=== PATIENT | female | born 1985 | race Caucasian/White ===

== ENCOUNTER → 2016-10-30 | Outpatient (CLI) | payer OTHER ==
[~2016-10-30] MED LIST: ALBU17AE3 IH; AMPH20TA2 PO; ARIP5TAB13 PO; ARPZ20T PO; AZIT-21 PO; BCP; BREX3TAB PO; CEPH-38 PO; CTLP20T; CYCL10TA9 PO; DCS100C PO; DOCU-143 PO; ESCT10T; FERR-57 PO; FLUO20CA25 PO; FLUO40CA12 PO; HYDR-3812 PO; IBP600T1 PO; IBUP800T26 PO; IOHEXOL 350 MG/ML 100 ML (OMNIPAQUE 350) VIAL IV ONE; LISD30CA3 PO; METH4TAB PO; MTP25TSR PO; NAPR-243 PO; NITR-65 PO; NORG1TAB15 PO; NS 100 ML (IVPB) BAG IV ONE; OXYC-12 PO; OXYC-197 PO; OXYC1TAB12 PO; PENI500T PO; PHEN200T27 PO; PREN-93 PO; TRM50T PO; VENL75CA PO; VNL75T PO
--- OUTSIDE RECORDS SUMMARY | 2016-10-30 11:45 | XMS REPORT | Continuity of Care Document ---
Author Author [facility] Organization [facility] Address Unknown Phone Unavailable Care Team Providers Care Electronics Hardware Design Engineer Name Role Phone [facility] PCP Insurance Providers Payer Name Policy Number Subscriber Name Relationship Self Pay Pending Maple [id number] Melissa Manzo 18 Self / Same As Patient Advance Directives Directive Response Recorded Date/Time Advance Directives No 11/26/14 5:07pm Health Care Power of Band Presser No 11/26/14 5:07pm Organ Donor Yes 11/26/14 5:07pm Resuscitation Status Full Code 11/26/14 5:07pm Problems No known problems or medical conditions. Medications Medication Dose Route Sig Days/Qty Instructions Order Date Discontinued Date Status Escitalopram Oxalate 06/25/09 07/30/09 Discontinued Cyclobenzaprine HCl (Flexeril) 1 Each PO TID PRN 15 Qty FOR MUSCLE SPASMS 06/25/09 07/30/09 Discontinued Naproxen 1 Each PO TID PRN 20 Qty 06/25/09 07/30/09 Discontinued Citalopram Hydrobromide 07/30/09 05/21/11 Discontinued Fluoxetine HCl 1 Each PO DAILY 60 MG DAILY 09/22/12 01/30/14 Discontinued [Bcp] 09/22/12 01/30/14 Discontinued Albuterol 2 [place] IH EVERY 4HRS 1 Qty 09/22/12 02/06/13 Discontinued Azithromycin (Zpak) 1 Pkt PO Z-PATRICK 6 Qty 09/22/12 02/06/13 Discontinued Methylprednisolone 1 Pkt PO DIRECTED 1 Qty 09/22/12 02/06/13 Discontinued Naproxen 1 Each PO BID - TID PRN 60 Qty 02/06/13 01/30/14 Discontinued Cyclobenzaprine HCl (Flexeril) 1 Each PO TWICE A DAY 20 Qty 02/06/13 01/30/14 Discontinued Metoprolol Succinate 1 Each PO DAILY 01/30/14 07/02/14 Discontinued Aripiprazole 5 Mg PO BEDTIME 01/30/14 07/02/14 Discontinued Venlafaxine HCl 1 Each PO DAILY 01/30/14 07/02/14 Discontinued Cephalexin Monohydrate 1 Each PO FOUR TIMES DAILY 28 Qty 01/30/14 Discontinued Oxycodone Hcl/Acetaminophen 1 Each PO Q4-6H PRN 8 Qty 01/30/14 Discontinued Ibuprofen (Motrin) 800 Mg PO q8h PRN PAIN 20 Qty 01/30/14 07/02/14 Discontinued Vit/Fe Fumarate/Fa 1 Each PO 07/02/14 Active Ibuprofen 600 Mg PO EVERY 6 HOURS PRN PAIN 60 Qty 11/28/14 Active Oxycodone Hcl/Acetaminophen 1-2 Tab PO GIVE EVERY 4 HRS ON SCHEDULE PRN PAIN 50 Qty 11/28/14 Active Docusate Sodium 100 Mg PO TWICE A DAY PRN CONSTIPATION 40 Qty 11/28/14 Active Ferrous Sulfate 325 Mg PO DAILY 60 Qty 11/28/14 Active Social History Social History Problem Response Recorded Date/Time Alcohol Use Denies Use 11/26/2014 7:02pm Recreational Drug Use No 11/26/2014 7:02pm Recent Foreign Travel No 11/26/2014 7:02pm Recent Infectious Disease Exposure No 11/26/2014 7:02pm Hospitalization with Isolation Denies 11/28/2014 11:55am Smoking Status Former Smoker 11/26/2014 5:09pm Query Response Start Date Stop Date Smoking Status Former Smoker 08/26/2015 Hospital Discharge Instructions Patient Instructions Physician Instructions New, Converted or Re-Newed RX: RX on Chart Additional Follow Up: Yes Orders/Referrals Dr. Zamora follow up in 7-10 days, and again at 6 weeks Activity: Activity as Tolerated Driving Instructions: You May Drive (do not drive while taking narcotic pain meds) NO SMOKING: NO SMOKING Nothing Inside Vagina: No Douching, No Tampons Discharge Diet: No Restrictions Symptoms to Report to : Bleeding Excessive, Pain Increased, Fever Over 101 Degrees F, Vaginal Bleeding Increase, Questions/Concerns For Any Problems or Questions: Contact Your Physician Infection Signs and Symptoms: Increased Redness, Foul Odor of Wound, Increased Drainage, Skin Itchy or Has a Rash, Increased Swelling, Temperature Above 101 F Operative Area Clean and Dry: Keep Incision Clean/Dry Stitches/[place]/Dermabond: Dermabond, Care of Stitches Bathing Instructions: Shower Plan of Care Discharge Date 11/28/14 10:50am Disposition 30 STILL A PATIENT Instructions/Education Provided DISCHARGE SECTION DISCHARGE Forms Provided PDI Prescriptions See Medications Section Referrals DORIAN ZAMORA DO (Unspecified) 01/09/15 Address: [address] [place] [address] [phone] Reason(s) for Referral: Follow up with Dr. Zamora on January 09 at 1:00 PM DORIAN ZAMOAR DO (Unspecified) 12/05/14 Address: [address] [place] [id number] Reason(s) for Referral: Follow up with Dr. Zamora December 05 at 1:30 PM Functional Status No functional status results. Allergies, Adverse Reactions, Alerts Allergen Type Severity Reaction Status Last Updated Codeine Allergy Unknown Active 01/30/14 Immunizations Name Given Type Date of Influenza Vaccine 07/26/14 Historical Hepatitis A Yes Historical Hepatitis B Yes Historical Tetanus Booster (TDap) Less than 5yrs Historical Tdap 11/28/14 Administered Tdap 11/28/14 Administered Vital Signs Acute Vital Signs Vital Response Date/Time Temperature (Fahrenheit) 96.3 degrees F (97.6 - 99.5) Temperature (Calculated Celsius) 35.94825 degrees C (36.4 - 37.5) Temperature Source Tympanic Pulse Rate (adult) 81 bpm (60 - 90) Respiratory Rate 16 bpm (12 - 24) O2 Sat by Pulse Oximetry 97 % (88 - 100) Blood Pressure 91/50 mm Hg Pain Pain Intensity 3 Height (Feet) 5 feet Height (Inches) 3.00 inches Height (Calculated Centimeters) 160.717237 cm Weight (Pounds) 226 pounds Weight (Ounces) 8.0 oz Weight (Calculated Grams) 663196.673 gm Weight (Calculated Kilograms) 102.088892 kilograms Calculated BMI 40.03 Results Laboratory Results Test Name Result Units Flags Reference Collection Date/Time Result Date/ Time Comments White Blood Count 12.8 10^3/uL H 4.3-11.0 11/27/2014 6:11/27/2014 6: 25am Red Blood Count 3.51 10^6/uL L 4.35-5.85 11/27/2014 6:11/27/2014 6: 25am Hemoglobin 10.5 G/DL L 11.5-16.0 11/27/2014 6:11/27/2014 6:25am Hematocrit 30 % L 35-52 11/27/2014 6:11/27/2014 6:25am Mean Corpuscular Volume 87 FL 80-99 11/27/2014 6:11/27/2014 6: 25am Mean Corpuscular Hemoglobin 30 PG 25-34 11/27/2014 6:11/27/2014 6: 25am Mean Corpuscular Hemoglobin Concent 35 G/DL 32-36 11/27/2014 6:05/2015 6:25am Red Cell Distribution Width 13.0 % 10.0-14.5 11/27/2014 6:2014 6:25am Platelet Count 106 10^3/uL L 130-400 11/27/2014 6:11/27/2014 6:25am Mean Platelet Volume 13.0 FL H 7.4-10.4 11/27/2014 6:11/27/2014 6: 25am Neutrophils (%) (Auto) 75 % 42-75 11/27/2014 6:11/27/2014 6:25am Lymphocytes (%) (Auto) 16 % 12-44 11/27/2014 6:11/27/2014 6:25am Monocytes (%) (Auto) 7 % 0-12 11/27/2014 6:11/27/2014 6:25am Eosinophils (%) (Auto) 2 % 0-10 11/27/2014 6:10am 11/27/2014 6:25am Basophils (%) (Auto) 0 % 0-10 11/27/2014 6:10am 11/27/2014 6:25am Neutrophils # (Auto) 9.6 X 10^3 H 1.8-7.8 11/27/2014 6:10am 11/27/2014 6: 25am Lymphocytes # (Auto) 2.1 X 10^3 1.0-4.0 11/27/2014 6:10am 11/27/2014 6: 25am Monocytes # (Auto) 0.9 X 10^3 0.0-1.0 11/27/2014 6:10am 11/27/2014 6: 25am Eosinophils # (Auto) 0.2 10^3/uL 0.0-0.3 11/27/2014 6:10am 11/27/2014 6 :25am Basophils # (Auto) 0.0 10^3/uL 0.0-0.1 11/27/2014 6:10am 11/27/2014 6: 25am Glucometer 103 MG/DL 70-110 11/26/2014 7:02pm 11/26/2014 7:10pm Procedures Procedure Status Date Provider(s) section completed 11/26/14 DORIAN ZAMORA DO Encounters Encounter Location Date/Time Discharged Inpatient Via [facility] 11/26/14 6:36pm
--- NOTE | 2016-10-30 12:46 | Diagnostic Imaging Report ---
PROCEDURE: CT abdomen and pelvis with contrast. TECHNIQUE: Multiple contiguous axial images were obtained through the abdomen and pelvis after administration of intravenous contrast. INDICATION: Left lower quadrant pain. 100 mL of Omnipaque 350 is administered intravenously. COMPARISON: 01/02/2016. FINDINGS: The lung bases appear clear. The liver appears fairly homogeneous. The gallbladder has a normal variation appearance being surrounded almost completely by liver parenchyma. There is no calcified stone. The spleen is not enlarged. The pancreas and the adrenal glands appear unremarkable. The kidneys demonstrate symmetric enhancement and contrast excretion. There is no hydronephrosis. The abdominal aorta is normal in caliber. No para-aortic significantly enlarged lymph node is seen. Tiny fat-containing umbilical hernia defect is seen which appears to be covered by a mesh. Correlate with surgical history. The uterus and the adnexa demonstrate no definite abnormality. There is no significant free fluid or fluid collection in the abdomen or pelvis seen. No bowel obstruction. Small amount of fecal material is seen in the colon. The appendix is normal. The osseous structures appear grossly unremarkable. IMPRESSION: No significant abnormality. Dictated by: Dictated on workstation # [id number]
== END ==
LOC: RAD 11:42
PROVIDERS: ATTEND Nurse Practitioner Community Health
DX: R10.32 Left lower quadrant pain (principal)
CPT/HCPCS: 74177

== ENCOUNTER 2016-12-19 13:30 | Outpatient (RCR) | payer SELFPAY ==
--- OUTSIDE RECORDS SUMMARY | 2016-11-28 14:45 | XMS REPORT | Continuity of Care Document ---
Author Author [facility] Organization [facility] Address Unknown Phone Unavailable Care Team Providers Care Ecommerce Marketing Manager Name Role Phone [facility] OF PCP Insurance Providers Payer Name Policy Number Subscriber Name Relationship Self Pay Pending Maple [id number] Melissa Manzo 18 Self / Same As Patient Advance Directives Directive Response Recorded Date/Time Advance Directives No 11/26/14 5:07pm Health Care Power of Mechanical Developer [place] No 11/26/14 5:07pm Organ Donor Yes 11/26/14 [...] Discontinued [Bcp] 09/22/12 01/30/14 Discontinued Albuterol 2 [place] IH EVERY 4HRS 1 Qty 09/22/12 02/06/13 [...] Area Clean and Dry: Keep Incision Clean/Dry Stitches/[place]/Dermabond: Dermabond, Care of Stitches Bathing Instructions: Shower Plan of Care Discharge Date 11/28/14 10:50am Disposition 30 STILL A PATIENT Instructions/Education Provided DISCHARGE SECTION DISCHARGE Forms Provided PDI Prescriptions See Medications Section Referrals DORIAN ZAMORA DO (Unspecified) 01/09/15 Address: [address] [place] [address] [phone] Reason(s) for Referral: Follow up with Dr. Zamora on January 09 at 1:00 PM DORIAN ZAMORA DO (Unspecified) 12/05/14 Address: [address] [place] [id number] Reason(s) for Referral: Follow up with [...] F (97.6 - 99.5) Temperature (Calculated Celsius) 35.94892 degrees C (36.4 - 37.5) Temperature Source Tympanic Pulse Rate (adult) 81 bpm (60 - 90) Respiratory Rate 16 bpm (12 - 24) O2 Sat by Pulse Oximetry 97 % (88 - 100) Blood Pressure 91/50 mm Hg Pain Pain Intensity 3 Height (Feet) 5 feet Height (Inches) 3.00 inches Height (Calculated Centimeters) 160.013948 cm Weight (Pounds) 226 pounds Weight (Ounces) 8.0 oz Weight (Calculated Grams) 246605.673 gm Weight (Calculated Kilograms) 102.460970 kilograms Calculated BMI 40.03 Results Laboratory Results [...] Encounters Encounter Location Date/Time Discharged Inpatient [facility] 11/26/14 6:36pm
[~2016-12-19 13:30] MED LIST changes: -IOHEXOL 350 MG/ML 100 ML (OMNIPAQUE 350) VIAL IV ONE; -NS 100 ML (IVPB) BAG IV ONE
== END 2017-01-14 14:31 | disposition home or self-care (01) ==
PROVIDERS: ATTEND Nurse Practitioner
DX: M54.16 Radiculopathy, lumbar region (principal)

== ENCOUNTER → 2017-06-09 | Outpatient (CLI) | payer MEDICAID ==
--- NOTE | 2017-06-09 11:28 | Diagnostic Imaging Report ---
INDICATION: survey. COMPARISON: None. TECHNIQUE: Multiple real-time grayscale images were obtained over the gravid uterus. FINDINGS: Single live intrauterine is identified with a heart rate of 146 beats per minute. The fetus is in cephalic presentation. Placenta is anterior and has a normal appearance. Amniotic fluid volume is normal. The fetus is cephalic. The visualized cervix is closed and measures approximately 4 cm. Visualized anatomy is normal. The four-chamber heart and spine are not well demonstrated due to patient body habitus and positioning. Biometrical measurements are as follows: Biparietal 4.6 cm, age 19 weeks 6 days. Head circumference 17.3 cm, age 20 weeks 0 days. Abdominal circumference 15.1 cm, age 20 weeks 3 days. Femur length 3.4 cm, age 20 weeks 5 days. Sonographic estimate age: 20 weeks 2 days. Sonographic estimated date of delivery: 10/25/17. Estimated Weight: 352 gm (+/- 51 gm). LMP percentile: 52%. heart rate: 146 beats per minute. number: 1 of 1. IMPRESSION: 1. Single live intrauterine at 20 weeks 2 days with a due date by ultrasound of 10/25/2017. 2. Cephalic presentation. 3. Symmetric appropriate growth. 4. Poorly visualized four chamber heart and spine due to positioning and patient body habitus. Consider followup. Dictated by: Dictated on workstation # [id number]
== END ==
LOC: RAD 09:46
PROVIDERS: ATTEND Obstetrics & Gynecology
DX: Z36 Encounter for antenatal screening of mother (principal); Z3A.20 20 weeks gestation of pregnancy
CPT/HCPCS: 76805

== ENCOUNTER 2017-07-02 18:52 | Outpatient (CLI) | payer MEDICAID ==
[~2017-07-02] VITALS: Ht 167.6 cm; Wt 96.6 kg
[2017-07-02 19:15] VITALS: BP 115/56
[2017-07-02] MEDS ORDERED: NITROFURANTOIN 100 MG (MACROBID) CAPSULE PO ONE ×2 (19:29→20:00)
[2017-07-02] MEDS ORDERED: PREN-53 PO (19:32)
--- NOTE | 2017-07-03 09:46 | Physician Query-Final Dx ---
CRISTINO VICTOR 07/03/17 0946: Clinic Account Progress/Dx Physician Query: Please give diagnosis Date of Service Jul 02, 2017 at 18:52 NATHANIEL BEAL MD 07/04/17 0658: Clinic Account Progress/Dx DIAGNOSIS: Diagnosis false labor CRISTINO VICTOR Jul 03, 2017 09:46 NATHANIEL BEAL MD Jul 04, 2017 06:58
== END 2017-07-02 19:40 | disposition home or self-care (01) ==
LOC: LDRP 18:52 → WSo 18:52
PROVIDERS: ATTEND Obstetrics & Gynecology
DX: O47.02 False labor before 37 completed weeks of gestation, second trimester (principal); Z3A.23 23 weeks gestation of pregnancy
CPT/HCPCS: 99213

== ENCOUNTER → 2017-07-09 | Outpatient (CLI) | payer MEDICAID ==
[~2017-07-09] MED LIST changes: +PREN-53 PO
--- NOTE | 2017-07-09 16:26 | Diagnostic Imaging Report ---
INDICATION: Follow-up spine and four-chamber view. TECHNIQUE: Multiple real-time grayscale images were obtained over the gravid uterus. COMPARISON: 06/09/2017. FINDINGS: The heart rate is 152 beats per minutes. The placenta is anterior. There is no placenta previa. The cervix is 4.8 cm in length and is closed. The spine and four-chamber view are visualized and appear unremarkable. IMPRESSION: Completed survey. Dictated by: Dictated on workstation # [id number]
== END ==
LOC: RAD 12:01
PROVIDERS: ATTEND Obstetrics & Gynecology
DX: Z36 Encounter for antenatal screening of mother; Z3A.00 Weeks of gestation of pregnancy not specified
CPT/HCPCS: 76805

== ENCOUNTER 2017-09-24 15:08 | Outpatient (CLI) | payer MEDICAID ==
[~2017-09-24] VITALS: Ht 160 cm; Wt 100.3 kg
[2017-09-24 15:42] VITALS: BP 97/52
[2017-09-24 16:05] VITALS: BP 108/52
[2017-09-24] MEDS ORDERED: GLYB5TAB6 PO (16:20)
[2017-09-24 17:00] VITALS: BP 100/56
[2017-09-24] MEDS ORDERED: LACTATED RINGERS 1,000 ML IV ONE (17:45)
[2017-09-24 19:32] VITALS: BP 100/56
--- NOTE | 2017-09-26 14:34 | Physician Query-Final Dx ---
SEVERIANO RICO 09/26/17 1434: Clinic Account Progress/Dx Physician Query: Please give diagnosis Date of Service Sep 24, 2017 at 15:08 NATHANIEL BEAL MD 09/26/17 1728: Clinic Account Progress/Dx DIAGNOSIS: Diagnosis false labor SEVERIANO RICO Sep 26, 2017 14:34 NATHANIEL BEAL MD Sep 26, 2017 17:28
== END 2017-09-24 19:32 | disposition home or self-care (01) ==
LOC: WSo 15:08 → LDRP 15:08 → WSo 19:32
PROVIDERS: ATTEND Obstetrics & Gynecology
DX: O47.03 False labor before 37 completed weeks of gestation, third trimester (principal); Z3A.35 35 weeks gestation of pregnancy
CPT/HCPCS: 82962; 96360; 96361; 99214

== ENCOUNTER → 2017-09-25 | Outpatient (CLI) | payer MEDICAID ==
[~2017-09-25] MED LIST changes: +GLYB5TAB6 PO
--- NOTE | 2017-09-25 17:02 | Diagnostic Imaging Report ---
OB ultrasound biophysical profile. INDICATION: Gestational diabetes. FINDINGS: heart rate is 123 beats per minute. The position is cephalic. DANICA is 13 cm. Biophysical profile parameters are all met for a total score of 8 out of 8. IMPRESSION: Biophysical profile score is 8 out of 8. Dictated by: Dictated on workstation # [id number]
== END ==
LOC: RAD 14:58
PROVIDERS: ATTEND Obstetrics & Gynecology
DX: O24.415 Gestational diabetes mellitus in pregnancy, controlled by oral hypoglycemic drugs (principal)
CPT/HCPCS: 76819

== ENCOUNTER 2017-10-09 01:05 | Outpatient (CLI) | payer MEDICAID ==
[~2017-10-09] VITALS: Ht 160 cm; Wt 100.3 kg
[2017-10-10] MEDS ORDERED: OXYC-471 PO (14:00)
[2017-10-10] MEDS ORDERED: IBUP-1773 PO (14:00)
[2017-10-10] MEDS ORDERED: DOCU100C37 PO (14:00)
== END 2017-10-09 13:07 ==
LOC: PREOP 01:05
PROVIDERS: ATTEND Obstetrics & Gynecology
DX: Z01.818 Encounter for other preprocedural examination (principal); O34.219 Maternal care for unspecified type scar from previous cesarean delivery

== ENCOUNTER 2017-10-09 19:53 | Inpatient (IN) | payer MEDICAID ==
[~2017-10-09] VITALS: Ht 160 cm; Wt 102.1 kg
[2017-10-09 20:11] VITALS: BP 113/62
[2017-10-09 20:21] LABS: BILIRUBIN,URINE NEGATIVE (NEGATIVE); KETONES,URINE NEGATIVE (NEGATIVE); LEUKOCYTE ESTERASE ,URINE 1+ (NEGATIVE); NITRITE,URINE NEGATIVE (NEGATIVE); PH,URINE 7 (5-9); PROTEIN,URINE NEGATIVE (NEGATIVE); UROBILINOGEN,URINE NORMAL (NORMAL)
[2017-10-09 20:47] LABS: WBC,URINE 0-2 /HPF
[2017-10-09] MEDS ORDERED: TERBUTALINE INJ 1 MG/ML (BRETHINE) AMP SC ONE ×2 (21:00→22:00)
[2017-10-09] MEDS: LACTATED RINGERS 1,000 ML IV SCH (21:05)
[2017-10-09 22:00] LABS: BASOPHILS % (AUTO) 0 % (0-10); EOSINOPHILS # (AUTO) 0.1 10^3/uL (0.0-0.3); EOSINOPHILS % (AUTO) 1 % (0-10); LYMPHOCYTES # (AUTO) 3.7 X 10^3 (1.0-4.0); LYMPHOCYTES % (AUTO) 20 % (12-44); MEAN CORPUSCULAR HEMOGLOBIN 31 PG (25-34); MEAN CORPUSCULAR HGB CONC 35 G/DL (32-36); MEAN CORPUSCULAR VOLUME 88 FL (80-99); MEAN PLATELET VOLUME 13.3 FL (7.4-10.4); MONOCYTES # (AUTO) 0.9 X 10^3 (0.0-1.0); MONOCYTES % (AUTO) 5 % (0-12); NEUTROPHILS # (AUTO) 14.1 X 10^3 (1.8-7.8); NEUTROPHILS % (AUTO) 75 % (42-75); PLATELET COUNT 154 10^3/uL (130-400); RED BLOOD COUNT 3.87 10^6/uL (4.35-5.85); RED CELL DISTRIBUTION WIDTH 13.3 % (10.0-14.5); WHITE BLOOD COUNT 18.9 10^3/uL (4.3-11.0)
[2017-10-09] MEDS ORDERED: morphine INJ 10 MG/ML 1ML (SYR OR VIAL) IVP ONE (22:00)
[2017-10-09 22:46] LABS: BAND NEUTROPHILS 0 %; BASOPHILS % (MANUAL) 1 %; EOSINOPHILS % (MANUAL) 1 %; LYMPHOCYTES % (MANUAL) 20 %; NEUTROPHILS % (MANUAL) 76 %
[2017-10-09 23:16] VITALS: BP 103/52
[2017-10-10] VITALS (7 sets, daily range): BP systolic 95–119; BP diastolic 50–59
[2017-10-10] MEDS ORDERED: LACTATED RINGERS 1,000 ML IV PRN (04:56)
[2017-10-10] MEDS ORDERED: CATHETER FLUSH 10 ML SYR IV PRN (05:00)
[2017-10-10] MEDS ORDERED: ceFAZolin 2 GM/50 ML NS 50 ML IV ONE (05:00)
[2017-10-10] MEDS ORDERED: CITRIC ACID/SOB CIT (BICITRA) 30 ML UDC PO ONE (05:00)
[2017-10-10] MEDS ORDERED: METOCLOPRAMIDE INJ 10 MG/2 ML (REGLAN) IV ONE (05:00)
[2017-10-10] MEDS ORDERED: FAMOTIDINE 20MG/2ML IV (PEPCID) IV ONE (05:00)
[2017-10-10] MEDS: LACTATED RINGERS 1,000 ML IV SCH ×3 (05:08→23:19)
--- NOTE | 2017-10-10 06:51 | History & Physical-OB ---
OB - Chief Complaint & HPI Date/Time Date of Admission: Date of Admission: Oct 09, 2017 at 9:52 pm Time Seen by Provider: 06:45 Chief Complaint/History OB-Reason for Admission/Chief: Onset of Labor Hx : 5 Hx Para: 4 Expected Date of Delivery: Oct 25, 2017 Gestational Age in Weeks: 37 Indication for : desires repeat Other reason for admission: This patient presented to L and D with regular contractions, with her history of GDMA2 in this she was scheduled for RLTCS next friday. Admission Nurse Assessment Rev: Yes History of Labs A neg Antibody neg RI RPR NR HBsAg NR HIV NR GC neg GBS neg Allergies and Home Medications Allergies Coded Allergies: hydrocodone (Verified Allergy, Intermediate, nausea, 10/10/17) codeine (Unverified Adverse Reaction, Intermediate, GI UPSET, 10/09/17) Home Medications Glyburide 5 Mg Tablet, 5 MG PO BID, (Reported) [id number]/Iron Fumarate/FA/Dss 1 Each Tablet, 1 EACH PO DAILY, (Reported) OB - History Hx of Present Care: Yes Ultrasounds: Normal mid trimester US Obstetrical Complications: Gestational Diabetes Medical Complications: None Obstetrical History Hx : 5 Hx Para: 4 Hx Termination: Yes (spontaneous ) Hx Multiple Gestation: No Hx Stillbirth: No Hx Complication: No Hx Induced Hypertens: Yes Hx Maternal Gestational Diabet: Yes Delivery History Hx Dystocia: No Hx Large For Gestational Age I: No Hx Small for Gestational Age I: No Hx Section: Yes Hx Vaginal Delivery Post C-Sec: No Hx Blood Disorders: No Adverse Rxn to Tranfusion: No (N/A) Patient Past Medical History Hx of Bipolar and Depression, + UDS in early for THC Social History/Family History HIV/AIDS: No Recent Infectious Disease Expo: No Sexually Transmitted Disease: No Alcohol Use: Denies Use Recreational Drug Use: No Immunizations Hepatitis A: Yes Hepatitis B: Yes Tetanus Booster (TDap): Less than 5yrs Date of Influenza Vaccine: Jul 28, 2017 OB - Admission Exam Physical Exam Vitals: Vital Signs 10/10/17 10/10/17 05:11 05:14 Temp 96.7 Pulse 88 Resp 18 B/P (MAP) 98/59 (72) O2 Delivery Room Air HEENT: NCAT Heart: Rhythm Normal Lungs: Clear Abdomen: Gravid Extremities: Normal Reflexes: Normal Cervical Dilatation: 2cm Effacement: 75% Station: -1 Membranes: Intact Heart Rate: 130's Accelerations: Accelerations Present Decelerations: No Decelerations Short Term Variability: Present Long-Term Variability: Average (6-25) Contractions on Admission: 6-10 Minutes Apart Intensity: Moderate Labs Laboratory Tests Test 10/09/17 20:10 10/09/17 20:44 10/09/17 21:15 10/10/17 05:05 Range/Units Urine Color YELLOW Urine Clarity CLEAR Urine pH 7 5-9 Urine Specific [place] 1.010 L 1.016-1.022 Urine Protein NEGATIVE NEGATIVE Urine Glucose (UA) NEGATIVE NEGATIVE Urine Ketones NEGATIVE NEGATIVE Urine Nitrite NEGATIVE NEGATIVE Urine Bilirubin NEGATIVE NEGATIVE Urine Urobilinogen NORMAL NORMAL MG/DL Urine Leukocyte Esterase 1+ H NEGATIVE Urine RBC (Auto) NEGATIVE NEGATIVE Urine RBC NONE /HPF Urine WBC 0-2 /HPF Urine Squamous Epithelial Cells 10-25 H /HPF Urine Crystals NONE /LPF Urine Bacteria TRACE /HPF Urine Casts NONE /LPF Urine Mucus NEGATIVE /LPF Urine Culture Indicated NO Glucometer 95 135 H 70-110 MG/DL White Blood Count 18.9 H 4.3-11.0 10^3/uL Red Blood Count 3.87 L 4.35-5.85 10^6/uL Hemoglobin 11.8 11.5-16.0 G/DL Hematocrit 34 L 35-52 % Mean Corpuscular Volume 88 80-99 FL Mean Corpuscular Hemoglobin 31 25-34 PG Mean Corpuscular Hemoglobin Concent 35 32-36 G/DL Red Cell Distribution Width 13.3 10.0-14.5 % Platelet Count 154 130-400 10^3/uL Mean Platelet Volume 13.3 H 7.4-10.4 FL Neutrophils (%) (Auto) 75 42-75 % Lymphocytes (%) (Auto) 20 12-44 % Monocytes (%) (Auto) 5 0-12 % Eosinophils (%) (Auto) 1 0-10 % Basophils (%) (Auto) 0 0-10 % Neutrophils # (Auto) 14.1 H 1.8-7.8 X 10^3 Lymphocytes # (Auto) 3.7 1.0-4.0 X 10^3 Monocytes # (Auto) 0.9 0.0-1.0 X 10^3 Eosinophils # (Auto) 0.1 0.0-0.3 10^3/uL Basophils # (Auto) 0.0 0.0-0.1 10^3/uL Neutrophils % (Manual) 76 % Lymphocytes % (Manual) 20 % Monocytes % (Manual) 2 % Eosinophils % (Manual) 1 % Basophils % (Manual) 1 % Band Neutrophils 0 % Blood Morphology Comment NORMAL OB - Assessment/Plan/Diagnosis Assessment Assessment: section Plan Plan: Section Discharge Diagnosis Diagnosis: 32 yo @ 37.6 GDMA2 Previous x 3 Early labor DORIAN SIERRA DO Oct 10, 2017 6:51 am
[2017-10-10] MEDS ORDERED: ONDANSETRON 4 MG/2 ML (SDV) Z0FRAN IVP PRN ×2 (07:00→08:30)
[2017-10-10] MEDS ORDERED: TETANUS,DIPTH,PERTUSS P/F (BOOSTRIX) 0.5 ML VIAL IM SCH (07:00)
[2017-10-10] MEDS ORDERED: MEASLES,MUMPS,RUBELLA 1 EA INJ SC SCH (07:00)
[2017-10-10] MEDS ORDERED: OXYTOCIN/NORMAL SALINE 500 ML IV SCH (07:00)
[2017-10-10] MEDS ORDERED: fentaNYL INJECTION 100 MCG/2 ML AMP ONE (07:05)
[2017-10-10] MEDS ORDERED: METOCLOPRAMIDE INJ 10 MG/2 ML (REGLAN) IV PRN (08:30)
[2017-10-10] MEDS ORDERED: NALOXONE 0.4 MG/ML 1 ML (NARCAN) VIAL IV PRN ×2 (08:30)
[2017-10-10] MEDS ORDERED: diphenhydrAMINE 50 MG/ML INJ (BENADRYL) IV PRN (08:30)
[2017-10-10] MEDS ORDERED: MEPERIDINE (DEMEROL) INJ 50 MG/ML IVP PRN (08:30)
[2017-10-10] MEDS ORDERED: ONDANSETRON 4 MG/2 ML (SDV) Z0FRAN IV PRN (08:30)
[2017-10-10] MEDS ORDERED: morphine INJ 10 MG/ML 1ML (SYR OR VIAL) IVP PRN (08:30)
[2017-10-10] MEDS: oxyCODONE/APAP 5/325MG (PERCOCET 5) TABLET PO PRN ×3 (12:20→21:45)
--- NOTE | 2017-10-10 13:59 | Discharge Inst-Women's Service ---
Discharge Inst-Women's Serv Depart Medication/Instructions New, Converted or Re-Newed RX: RX on Chart Consults/Follow Up Additional Follow Up: Yes Orders/Referrals Dr. Zamora in 7-10 days and in 6 weeks Activity Activity: Activity as Tolerated Driving Instructions: No Driving for 1 Week NO SMOKING: NO SMOKING Nothing Inside Vagina: No Douching, No [place], No Tampons Diet Discharge Diet: No Restrictions Symptoms to Report to : Bleeding Excessive, Pain Increased, Fever Over 101 Degrees F, Vaginal Bleeding Increase, Questions/Concerns For Any Problems or Questions: Contact Your Physician Skin/Wound Care Infection Signs and Symptoms: Increased Redness, Foul Odor of Wound, Increased Drainage, Skin Itchy or Has a Rash, Increased Swelling, Temperature Above 101 F Operative Area Clean and Dry: Keep Incision Clean/Dry Stitches/[place]/Dermabond: Dermabond, Care of Stitches Bathing Instructions: DORIAN Jordan DO Oct 10, 2017 1:59 pm
[2017-10-10] MEDS ORDERED: CATHETER FLUSH 10 ML SYR IV SCH (14:00)
[2017-10-10] MEDS ORDERED: IBUP-1773 PO (14:00)
[2017-10-10] MEDS ORDERED: DOCU100C37 PO (14:00)
[2017-10-10] MEDS ORDERED: OXYC-471 PO (14:00)
--- NOTE | 2017-10-10 16:45 | OPERATIVE REPORT ---
DATE OF SERVICE: PREOPERATIVE DIAGNOSES: 1. A 32-year-old female with repeat section x3. 2. Active labor. 3. Gestational diabetes. POSTOPERATIVE DIAGNOSES: 1. A 32-year-old female with repeat section x3. 2. Active labor. 3. Gestational diabetes. PROCEDURE: Repeat low transverse section. SURGEON: Dr. Frankie Sierra. ANESTHESIA: Spinal. ESTIMATED BLOOD LOSS: 500 mL. URINE OUTPUT: 500 mL clear at the end of the procedure. FLUIDS: 1700 mL lactated Ringer's solution. FINDINGS: A live female infant, weight pending, Apgars of 7 and 8. Grossly normal-appearing uterus, bilateral fallopian tubes and ovaries. Dense adhesions and scar tissue of the rectus fascia and Sherley's fascia. SPECIMEN SENT: None. INDICATIONS FOR PROCEDURE: This 32-year-old female is a patient who had care in my office and was diagnosed with gestational diabetes, which was controlled with glyburide. She presented last evening with mild contractions that seemed to worsen throughout the evening. She made mild cervical change from 1 to 2 to 2 cm. Due to ongoing contractions and diagnosis of active labor as well as repeat , I discussed with the patient proceeding with . Risks of the procedure had already been reviewed with the patient and she was scheduled for next week. Risk of bleeding, infection, damage to any surrounding structures including but not limited to bowel, bladder, ureter, kidneys, risk of damaging , postoperative blood clot or thromboembolic events were discussed, risk from anesthesia and even . After everything was discussed with the patient, consent was obtained in the preoperative area and the patient was taken to the operating room. OPERATIVE REPORT IN DETAIL: Once in the operating room, spinal anesthesia was found to be adequate. She was placed in the supine position with a leftward tilt, prepped and draped in normal sterile fashion. A Pfannenstiel skin incision made through the previously existing scar using the knife and carried down to underlying fascia using Bovie cautery. Fascial incision extended laterally using Bovie cautery. The superior aspect of the fascial incision was then grasped with Zenia clamps, tented up and dissected off the underlying rectus muscles. The inferior aspect of the fascial incision was then grasped with Zenia clamps, tented upward and dissected off the underlying rectus muscles. Rectus muscle was then dissected down the midline using Cooper scissors which exposed the peritoneum which entered bluntly and extended with blunt traction. An Ryder ring retractor was placed within the peritoneal incision, which offers excellent lateral sidewall retraction. I then proceed with making a low transverse incision through the vesicouterine peritoneum using knife and bluntly dissected off the lower uterine segment. I then proceed with my myotomy using a knife until membranes were visualized at which point, I extend the uterine incision laterally and superiorly using bandage scissors. Amniotomy was performed using Allis clamp, clear fluid was noted. The was found in vertex presentation. With gentle fundal pressure and elevation of the head, the 's head was delivered through the incision where the nares and oropharynx are bulb suctioned. The anterior and posterior shoulders were delivered. The infant was then brought out to the operative field where cord was doubly clamped and cut and infant handed off to waiting nurses in attendance. Cord blood was collected. Three-vessel cord with intact placenta was delivered spontaneously, thereafter. IV Pitocin was initiated to facilitate uterine contraction. Uterine fundus became firmer with bimanual massage. Uterus then exteriorized and cleared of endometrial clots and debris. The uterine incision was then closed using 0 Vicryl in a running locked fashion. Second layer of imbricating 0 Monocryl was placed. Excellent hemostasis was noted after doing this. The uterus was then placed back within the pelvis and the pelvis was copiously irrigated using normal saline. There was no active bleeding noted from any my dissection planes. I then proceeded with closing the peritoneum with 3-0 Vicryl suture in a running fashion after the Ryder ring retractor was removed. The fascia was reapproximated using 0 Vicryl suture in running fashion. Subcutaneous tissue reapproximated using 3-0 plain interrupted subcutaneous tissue and skin reapproximated using 4-0 Monocryl in a running subcuticular. Dermabond was applied to the incision and sterile dressing with adhesive white tape. The patient tolerated the procedure well and was taken to recovery area in stable condition. Lap and sponge count correct at the end of the procedure, instrument counts correct as well. Two grams of Ancef given preoperatively for infection prophylaxis. Job ID: [id number] DocumentID: [id number] Dictated Date: 10/10/2017 08:16:19 Tong Hooker Date: 10/10/2017 13:10:49 Dictated By: FRANKIE SIERRA DO
[2017-10-10] MEDS: KETOROLAC 30 MG/ML VIAL IVP SCH ×2 (17:01→23:15)
[2017-10-10] MEDS: DOCUSATE SODIUM 100 MG (COLACE) CAP PO SCH (21:45)
[2017-10-11 00:50] VITALS: BP 98/57
[2017-10-11] MEDS: KETOROLAC 30 MG/ML VIAL IVP SCH ×2 (06:01→18:28)
[2017-10-11] MEDS ORDERED: KETOROLAC 30 MG/ML VIAL ONE (06:01)
[2017-10-11 07:32] LABS: BASOPHILS % (AUTO) 0 % (0-10); EOSINOPHILS # (AUTO) 0.1 10^3/uL (0.0-0.3); EOSINOPHILS % (AUTO) 1 % (0-10); LYMPHOCYTES # (AUTO) 2.5 X 10^3 (1.0-4.0); LYMPHOCYTES % (AUTO) 19 % (12-44); MEAN CORPUSCULAR HEMOGLOBIN 31 PG (25-34); MEAN CORPUSCULAR HGB CONC 34 G/DL (32-36); MEAN CORPUSCULAR VOLUME 89 FL (80-99); MEAN PLATELET VOLUME 12.9 FL (7.4-10.4); MONOCYTES # (AUTO) 0.7 X 10^3 (0.0-1.0); MONOCYTES % (AUTO) 5 % (0-12); NEUTROPHILS # (AUTO) 10.1 X 10^3 (1.8-7.8); NEUTROPHILS % (AUTO) 75 % (42-75); PLATELET COUNT 142 10^3/uL (130-400); RED BLOOD COUNT 3.48 10^6/uL (4.35-5.85); RED CELL DISTRIBUTION WIDTH 13.5 % (10.0-14.5); WHITE BLOOD COUNT 13.4 10^3/uL (4.3-11.0)
[2017-10-11 08:56] VITALS: BP 108/58
[2017-10-11] MEDS: DOCUSATE SODIUM 100 MG (COLACE) CAP PO SCH ×2 (09:00→11:26)
--- NOTE | 2017-10-11 09:49 | Progress Note-Standard ---
Standard Progress Note Progress Notes/Assess & Plan Date Seen by Provider: Oct 11, 2017 Time Seen by Provider: 09:30 Progress/Assessment & Plan patient is doing well postop day one from repeat low transverse section. She is ambulating and voiding freely, she is tolerating a regular diet , she admits to njjn-[id number] lochia. Vital Sign - Last 24 Hours 10/10/17 10/10/17 10/10/17 10/10/17 10:00 12:00 16:45 21:35 Temp 98.8 98.3 99.0 97.6 Pulse 76 85 75 75 Resp 18 18 18 18 B/P (MAP) 95/50 (65) 103/59 (74) 96/50 (65) 98/51 (67) Pulse Ox 98 99 99 100 O2 Delivery Room Air Room Air Room Air Room Air 10/11/17 10/11/17 00:50 08:56 Temp 96.9 98.8 Pulse 83 77 Resp 18 18 B/P (MAP) 98/57 (71) 108/58 (75) Pulse Ox 99 100 O2 Delivery Room Air Intake and Output 10/10/17 10/10/17 10/11/17 15:00 23:00 07:00 Intake Total 550 ml 1860 ml 1250 ml Output Total 530 ml 1000 ml Balance 20 ml 860 ml 1250 ml Incision: Clean, dry, intact Laboratory Tests Test 10/11/17 07:18 Range/Units White Blood Count 13.4 H 4.3-11.0 10^3/uL Red Blood Count 3.48 L 4.35-5.85 10^6/uL Hemoglobin 10.6 L 11.5-16.0 G/DL Hematocrit 31 L 35-52 % Mean Corpuscular Volume 89 80-99 FL Mean Corpuscular Hemoglobin 31 25-34 PG Mean Corpuscular Hemoglobin Concent 34 32-36 G/DL Red Cell Distribution Width 13.5 10.0-14.5 % Platelet Count 142 130-400 10^3/uL Mean Platelet Volume 12.9 H 7.4-10.4 FL Neutrophils (%) (Auto) 75 42-75 % Lymphocytes (%) (Auto) 19 12-44 % Monocytes (%) (Auto) 5 0-12 % Eosinophils (%) (Auto) 1 0-10 % Basophils (%) (Auto) 0 0-10 % Neutrophils # (Auto) 10.1 H 1.8-7.8 X 10^3 Lymphocytes # (Auto) 2.5 1.0-4.0 X 10^3 Monocytes # (Auto) 0.7 0.0-1.0 X 10^3 Eosinophils # (Auto) 0.1 0.0-0.3 10^3/uL Basophils # (Auto) 0.0 0.0-0.1 10^3/uL diagnosis: Postop day 1 repeat low transverse section GDM A2 acute blood loss anemia Plan: Replace iron with oral supplementation Continue routine postoperative care Plan for dismissal tomorrow pending patient's improvement DORIAN SIERRA DO Oct 11, 2017 9:49 am
[2017-10-11] MEDS: oxyCODONE/APAP 5/325MG (PERCOCET 5) TABLET PO PRN ×2 (11:26→16:53)
[2017-10-11 12:47] VITALS: BP 108/54
[2017-10-11] MEDS: IBUPROFEN 600 MG (MOTRIN) TAB PO SCH ×2 (12:48→18:00)
--- NOTE | 2017-10-11 15:04 | Anesthesia-Regional Post-Op ---
Regional Patient Condition Mental Status: Alert, Oriented x3 Circulation: Same as Pre-Op Headache: Absent Sensation: Full Recovery Motor Block: Absent Post Op Complications Complications None Follow Up Care/Instructions Patient Instructions None needed. Anesthesia/Patient Condition Patient is doing well, no complaints, stable vital signs, no apparent adverse anesthesia problems. No complications reported per nursing. JOY MOTT CRNA Oct 11, 2017 15:04
[2017-10-11 17:56] VITALS: BP 102/51
[2017-10-12] VITALS: BP 97/48
[2017-10-12] MEDS: IBUPROFEN 600 MG (MOTRIN) TAB PO SCH ×3 (00:09→16:45)
[2017-10-12] MEDS: DOCUSATE SODIUM 100 MG (COLACE) CAP PO SCH ×2 (00:09→10:00)
--- NOTE | 2017-10-12 07:54 | Progress Note-Standard ---
Standard Progress Note Progress Notes/Assess & Plan Date Seen by Provider: Oct 12, 2017 Time Seen by Provider: 07:55 Progress/Assessment & Plan patient is doing well postop day two from repeat low transverse section. She is ambulating and voiding freely, she is tolerating a regular diet , she admits to efzs-yp-bnsocqje lochia. Vital Sign - Last 24 Hours 10/11/17 10/11/17 10/11/17 10/12/17 08:56 12:47 17:56 00:00 Temp 98.8 98.9 98.6 98.1 Pulse 77 72 73 73 Resp 18 18 18 18 B/P (MAP) 108/58 (75) 108/54 (72) 102/51 (68) 97/48 (64) Pulse Ox 100 99 100 98 O2 Delivery Room Air Room Air Room Air Room Air Intake and Output 10/11/17 10/11/17 10/12/17 15:00 23:00 07:00 Intake Total 922 ml Output Total 1350 ml Balance -428 ml Incision: Clean, dry, intact Diagnosis: Postop day 2 repeat low transverse section GDM A2 acute blood loss anemia Plan: Replace iron with oral supplementation Continue routine postoperative care Plan for dc later today DORIAN SIERRA DO Oct 12, 2017 7:54 am
[2017-10-12 10:00] VITALS: BP 113/74
[2017-10-12 16:50] VITALS: BP 110/55
== END 2017-10-12 16:50 | disposition home or self-care (01) | DRG 765 ==
LOC: WSo 19:53 → LDRP 19:53 → WSo 21:52 → LDRP 21:52
PROVIDERS: ADMIT Obstetrics & Gynecology; ATTEND Obstetrics & Gynecology
PROC: 10D00Z1 Extraction of Products of Conception, Low, Open Approach (ICD-10-PCS; principal; 2017-10-10 07:13)
DX: O24.425 Gestational diabetes mellitus in childbirth, controlled by oral hypoglycemic drugs (principal); O34.211 Maternal care for low transverse scar from previous cesarean delivery; O90.81 Anemia of the puerperium; D62 Acute posthemorrhagic anemia; Z3A.37 37 weeks gestation of pregnancy; Z37.0 Single live birth
CPT/HCPCS: 36415; 81000; 82962; 83033; 85007; 85025; 85027; 86850; 86900; 86901; 87081; 87088; 94664; 99212

== ENCOUNTER 2018-04-20 08:25 | Emergency (ER) | payer SELFPAY ==
[~2018-04-20] VITALS: Ht 160 cm; Wt 97.5 kg
[~2018-04-20 08:25] MED LIST changes: +ACHD5005 PO; +DOCU100C37 PO; -HYDR-3812 PO; +IBUP-1773 PO; +OXYC-471 PO
[2018-04-20] MEDS ORDERED: PROMETHAZINE INJ 25 MG/ML (PHENERGAN) AMP IVP STA (09:09)
[2018-04-20] MEDS ORDERED: KETOROLAC 30 MG/ML VIAL IVP STA (09:09)
[2018-04-20] MEDS ORDERED: NS IV 1000 ML 1,000 ML IV ONE (09:09)
[2018-04-20] MEDS ORDERED: diphenhydrAMINE 50 MG/ML INJ (BENADRYL) IV STA (09:09)
[2018-04-20 09:21] LABS: BASOPHILS % (AUTO) 0 % (0-10); EOSINOPHILS # (AUTO) 0.1 10^3/uL (0.0-0.3); EOSINOPHILS % (AUTO) 1 % (0-10); HEMATOCRIT 40 % (35-52); HEMOGLOBIN 13.7 G/DL (11.5-16.0); LYMPHOCYTES # (AUTO) 2.9 X 10^3 (1.0-4.0); LYMPHOCYTES % (AUTO) 25 % (12-44); MEAN CORPUSCULAR HEMOGLOBIN 29 PG (25-34); MEAN CORPUSCULAR HGB CONC 34 G/DL (32-36); MEAN CORPUSCULAR VOLUME 83 FL (80-99); MEAN PLATELET VOLUME 11.9 FL (7.4-10.4); MONOCYTES # (AUTO) 0.5 X 10^3 (0.0-1.0); MONOCYTES % (AUTO) 5 % (0-12); NEUTROPHILS # (AUTO) 8.1 X 10^3 (1.8-7.8); NEUTROPHILS % (AUTO) 69 % (42-75); PLATELET COUNT 180 10^3/uL (130-400); RED BLOOD COUNT 4.81 10^6/uL (4.35-5.85); RED CELL DISTRIBUTION WIDTH 15.3 % (10.0-14.5); WHITE BLOOD COUNT 11.7 10^3/uL (4.3-11.0)
[2018-04-20 09:40] LABS: ALANINE AMINOTRANSFERASE 22 U/L (0-55); ALKALINE PHOSPHATASE 83 U/L (40-136); BILIRUBIN,TOTAL 0.2 MG/DL (0.1-1.0); BUN/CREATININE RATIO 8; CALCIUM 9.1 MG/DL (8.5-10.1); CARBON DIOXIDE 20 MMOL/L (21-32); CHLORIDE 112 MMOL/L (98-107); CREATININE SERUM 0.72 MG/DL (0.60-1.30); GFR ESTIMATED > 60; GLUCOSE 109 MG/DL (70-105); POTASSIUM 3.9 MMOL/L (3.6-5.0); SODIUM 140 MMOL/L (135-145); TOTAL PROTEIN 6.6 GM/DL (6.4-8.2)
--- NOTE | 2018-04-20 10:08 | Diagnostic Imaging Report ---
PROCEDURE: CT head without contrast. TECHNIQUE: Multiple contiguous axial images were obtained through the brain without the use of intravenous contrast. INDICATION: Migraine headache x 5 days. FINDINGS: The ventricles are normal in size, shape, and position. There are no masses or hemorrhages. There are no extra-axial fluid collections. IMPRESSION: Negative CT head. Dictated by: Dictated on workstation # [id number]
--- NOTE | 2018-04-20 11:10 | ED Headache ---
General Chief Complaint: Head/Cervical Problems Stated Complaint: MIGRAINE Nursing Triage Note: PT CO OF MIGRAINE FOR 5 DAYS Nursing Sepsis Screen: No Definite Risk Source: patient Exam Limitations: no limitations History of Present Illness Date Seen by Provider: Apr 20, 2018 Time Seen by Provider: 09:05 Timing/Duration: increasing, other (5 days) Severity/Quality: moderate, severe Location: frontal, occipital Prior Headaches/Recent Trauma: frequent headaches Modifying Factors: worse with exposure to light Associated Symptoms: No fever/chills, No loss of consciousness; nausea/vomiting ; No nasal congestion, No nasal drainage, No sinus infection, No stiff neck Allergies and Home Medications Allergies Coded Allergies: codeine (Unverified Adverse Reaction, Intermediate, GI UPSET, 10/09/17) hydrocodone (Verified Adverse Reaction, Intermediate, nausea, 10/10/17) Home Medications No Active Prescriptions or Reported Meds Patient Home Medication List Home Medication List Reviewed: Yes Review of Systems Constitutional: see HPI; No chills, No fever Eyes: See HPI, Blurred Vision, Photophobia Ears, Nose, Mouth, Throat: denies ear pain, denies nose discharge Respiratory: No short of breath, No wheezing Cardiovascular: No chest pain, No edema Gastrointestinal: nausea, vomiting Genitourinary: no symptoms reported Musculoskeletal: no symptoms reported Skin: no symptoms reported All Other Systems Reviewed Negative Unless Noted: Yes Past Dwqdsww-Sxedrt-Ibualc Hx Past Med/Social Hx: Reviewed Nursing Past Med/Soc Hx Patient Social History Alcohol Use: Denies Use Recreational Drug Use: No Type Used: Cigarettes Former Smoker, Quit: Jan 23, 2017 Recent Foreign Travel: No Contact w/Someone Who Travel: No Recent Infectious Disease Expo: No Recent Hopitalizations: No Physical Abuse: No Sexual Abuse: No Immunizations Up To Date Tetanus Booster (TDap): Less than 5yrs PED Vaccines UTD: Yes Date of Influenza Vaccine: Jul 28, 2017 Seasonal Allergies Seasonal Allergies: No Past Medical History Surgeries: Yes (d&c, hernia repair) Section Respiratory: No Cardiac: No Neurological: No Headaches /Migraines : No Last Menstrual Period: February 17, 2018 Reproductive Disorders: No Female Reproductive Disorders: Denies 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 Sexually Transmitted Disease: No HIV/AIDS: No Genitourinary: No Gastrointestinal: Yes (UMBILICAL HERNIA) Gastroesophageal Reflux Musculoskeletal: No Endocrine: Yes (Hx Gestational diabetes) HEENT: Yes (GLASSES) Loss of Vision: Bilateral Hearing Impairment: Denies Cancer: No Psychosocial: Yes Anxiety, Bipolar, Depression Nursing Suicide Risk Score: 0 Integumentary: No Blood Disorders: No Adverse Reaction/Blood Tranf: No (N/A) Family Medical History Reviewed Nursing Family Hx Diabetes mellitus No Pertinent Family Hx Physical Exam Vital Signs Vital Signs - First Documented 04/20/18 08:30 Temp 96.8 Pulse 77 Resp 18 B/P (MAP) 118/62 (80) Pulse Ox 99 Capillary Refill : Less Than 3 Seconds General Appearance: WD/WN, mild distress HEENT: PERRL/EOMI, TMs normal, pharynx normal Neck: full range of motion, supple Cardiovascular: regular rate, rhythm, no murmur Respiratory: lungs clear, normal breath sounds Gastrointestinal: non tender, soft Back: normal inspection, no CVA tenderness, no vertebral tenderness Extremities: normal range of motion, non-tender Psychiatric: alert, oriented x 3 Crainal Nerves: normal hearing, normal speech, PERRL Coordination/Gait: normal gait Motor/Sensory: no motor deficit, no sensory deficit Progress/Results/Core Measures Results/Orders Lab Results Laboratory Tests Test 04/20/18 09:15 Range/Units White Blood Count 11.7 H 4.3-11.0 10^3/uL Red Blood Count 4.81 4.35-5.85 10^6/uL Hemoglobin 13.7 11.5-16.0 G/DL Hematocrit 40 35-52 % Mean Corpuscular Volume 83 80-99 FL Mean Corpuscular Hemoglobin 29 25-34 PG Mean Corpuscular Hemoglobin Concent 34 32-36 G/DL Red Cell Distribution Width 15.3 H 10.0-14.5 % Platelet Count 180 130-400 10^3/uL Mean Platelet Volume 11.9 H 7.4-10.4 FL Neutrophils (%) (Auto) 69 42-75 % Lymphocytes (%) (Auto) 25 12-44 % Monocytes (%) (Auto) 5 0-12 % Eosinophils (%) (Auto) 1 0-10 % Basophils (%) (Auto) 0 0-10 % Neutrophils # (Auto) 8.1 H 1.8-7.8 X 10^3 Lymphocytes # (Auto) 2.9 1.0-4.0 X 10^3 Monocytes # (Auto) 0.5 0.0-1.0 X 10^3 Eosinophils # (Auto) 0.1 0.0-0.3 10^3/uL Basophils # (Auto) 0.0 0.0-0.1 10^3/uL Sodium Level 140 135-145 MMOL/L Potassium Level 3.9 3.6-5.0 MMOL/L Chloride Level 112 H 98-107 MMOL/L Carbon Dioxide Level 20 L 21-32 MMOL/L Anion Gap 8 5-14 MMOL/L Blood Urea Nitrogen 6 L 7-18 MG/DL Creatinine 0.72 0.60-1.30 MG/DL Estimat Glomerular Filtration Rate > 60 BUN/Creatinine Ratio 8 Glucose Level 109 H 70-105 MG/DL Calcium Level 9.1 8.5-10.1 MG/DL Total Bilirubin 0.2 0.1-1.0 MG/DL Aspartate Amino Transf (AST/SGOT) 21 5-34 U/L Alanine Aminotransferase (ALT/SGPT) 22 0-55 U/L Alkaline Phosphatase 83 40-136 U/L C-Reactive Protein High Sensitivity 0.33 0.00-0.50 MG/DL Total Protein 6.6 6.4-8.2 GM/DL Albumin 4.0 3.2-4.5 GM/DL My Orders Orders - JORDI BLANCO MD Ct Head Wo (04/20/18 09:09) Cbc With Automated Diff (04/20/18 09:09) Comprehensive Metabolic Panel (04/20/18 09:09) Hs C Reactive Protein (04/20/18 09:09) Saline Lock/Iv-Start (04/20/18 09:09) Ns Iv 1000 Ml (Sodium Chloride 0.9%) (04/20/18 09:09) Promethazine Injection (Phenergan Injec (04/20/18 09:09) Diphenhydramine Injection (Benadryl Inje (04/20/18 09:09) Ketorolac Injection (Toradol Injection) (04/20/18 09:09) Medications Given in ED Current Medications Medications Dose Ordered Sig/Ryland Route Start Time Stop Time Status Last Admin Dose Admin Sodium Chloride 1,000 ml @ 0 mls/hr Q0M ONCE IV 04/20/18 09:09 04/20/18 09:11 DC 04/20/18 09:30 0 MLS/HR Vital Signs/I&O 04/20/18 08:30 Temp 96.8 Pulse 77 Resp 18 B/P (MAP) 118/62 (80) Pulse Ox 99 Blood Pressure Mean: 80 Progress Progress Note : Progress Note Seen and evaluated patient. IV, labs, normal saline 1 L bolus, Toradol 30 mg IV , Phenergan 25 mg IV and Benadryl 25 mg IV ordered. We will check CT of the head and basic labs given this is a more significant headache for her. Monitor patient. 1100: Patient states her pain is much improved. She feels tired but feels like she can go home and rest. CT and labs do not show any significant findings. Discharged home with return precautions. Patient verbalize understanding instructions and agreement with plan. Departure Impression Primary Impression: Migraine Qualified Codes: G43.009 - Migraine without aura, not intractable, without status migrainosus Disposition: 01 HOME, SELF-CARE Condition: Improved Departure-Patient Inst. Decision time for Depature: 11:14 Referrals: [facility] [place] (PCP) Primary Care Physician DORIAN SIERRA DO (Family) Primary Care Physician Patient Instructions: Migraine Headache (DC) Add. Discharge Instructions: All discharge instructions reviewed with patient and/or family. Voiced understanding. Continue medications as previously prescribed. You may take ibuprofen 800 mg every 8 hours as needed for pain. You may take Tylenol/acetaminophen 1000 mg every 8 hours as needed for pain. Drink plenty of fluids. Follow-up with her doctor in a few days for recheck. Return for worse pain, fever, vomiting, weakness, breathing problems or other concerns as needed. Scripts No Active Prescriptions or Reported Meds Work/School Note: Work Release Form Date Seen in the Emergency Department: Apr 20, 2018 Return to Work: Apr 21, 2018 Restrictions: No Restrictions JORDI BLANCO MD Apr 20, 2018 11:10
[2018-04-20 11:40] VITALS: BP 118/62
== END 2018-04-20 11:39 | disposition home or self-care (01) ==
LOC: EDUNIT# 08:25 → ER 08:27
DX: G43.909 Migraine, unspecified, not intractable, without status migrainosus (principal); K21.9 Gastro-esophageal reflux disease without esophagitis; F41.9 Anxiety disorder, unspecified; F31.9 Bipolar disorder, unspecified; Z87.891 Personal history of nicotine dependence; Z87.59 Personal history of other complications of pregnancy, childbirth and the puerperium; Z98.51 Tubal ligation status; Z88.5 Allergy status to narcotic agent; Z98.890 Other specified postprocedural states
CPT/HCPCS: 36415; 70450; 80053; 85025; 86141; 96361; 96374; 96375

== ENCOUNTER 2018-08-13 09:04 | Emergency (ER) | payer SELFPAY ==
[~2018-08-13] VITALS: Ht 160 cm; Wt 89.8 kg
[~2018-08-13 09:04] MED LIST changes: -OXYC-197 PO; +OXYC1TAB87 PO
--- OUTSIDE RECORDS SUMMARY | 2018-08-13 09:09 | XMS REPORT ---
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 Name Role Phone SAMIR BRANDON Unavailable PROBLEMS Type Condition ICD9-CM Code HSO38-HL Code Onset Dates Condition Status SNOMED Code Problem Carpal tunnel syndrome 354.0 Active 80170723 Problem Bipolar 1 disorder, mixed F31.60 Active 76613829 Problem Reactive airway disease 493.90 Active 660582713271 Problem Personal history of tobacco use, presenting hazards to health V15.82 Active 6909690834999 Problem Diverticulitis of colon (without mention of hemorrhage) 562.11 Active 079984196 Problem 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 99661685 Problem Other chronic pain G89.29 Active 65460580 Problem Lumbago with sciatica, right side M54.41 Active 836110872 Problem Abdominal pain R10.9 Active 67992768 Problem Anxiety disorder, unspecified F41.9 Active 635690136 Problem History of gestational diabetes Z86.32 Active 785425355 Problem Amenorrhea N91.2 Active 64178778 ALLERGIES Substance Reaction Event Type Date Status Codeine nausea and vomiting Drug Allergy Dec, Active ENCOUNTERS Encounter Location Date Diagnosis [place] [id number] [place] [address]- 9866 Jan, Bipolar 1 disorder, mixed F31.60 [facility] [place] [id number] [place] [address] 28336- 2635 Jan, Acute suppurative otitis media of right ear without spontaneous rupture of tympanic membrane, recurrence not specified H66.001 [place] [id number] [address] Dec, Lumbago with sciatica, right side M54.41 ; Other chronic pain G89.29 ; Bipolar 1 disorder, mixed F31.60 ; History of gestational diabetes Z86.32 and Family history of diabetes mellitus Z83.3 [place] [address] [address] Sep, Acute non-recurrent maxillary sinusitis J01.00 and BMI 40.0- 44.9, adult Z68.[address] [address]- [address] Jul, [place] [address] [address]- [address] Jul, Acute bronchitis due to other specified organisms J20.[address] 27[address]- [address]68 February, Amenorrhea N91.2 ; Lumbar radiculopathy M54.16 and Positive test Z32.[address] 12[address]- 4912 Dec, Tonsillitis J03.[address] 6[address]- 7064 16 Nov, 2016 Wheezing R06.2 and Cough R05 [address] [address]- 5693 02 Nov, 2016 Lumbar radiculopathy M54.16 and IT band syndrome, right M76.[address] [address]- [address] Oct, [address] [address]- 34[address] Oct, Abdominal pain R10.[address] 27[address]- 9635 Oct, LLQ abdominal pain R10.32 and Right hip pain M25.[address] 20[address]- 5010 Aug, Acute suppurative otitis media of left ear without spontaneous rupture of tympanic membrane, recurrence not specified H66.002 [facility] [place] [id number] [place] [address] 32868- 0028 Jun, Anxiety disorder, unspecified F41.9 [facility] [place] [id number] [place] [address] 85825- 1832 Mar, [facility] [place] [address] 19[address]- [address] February, 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 and Anxiety disorder, unspecified F41.9 [facility] [place] [id number] [place] [address] 18071- 6498 February, [facility] [place] [id number] [place] [address] 41634- 6503 Jan, [facility] [place] [address] 41463- 288[address] Jan, [facility] use of drug Z79.899 and Bipolar 1 disorder, mixed F31.60 [facility] [place] [id number] [place] [address] 14713- 5438 Jan, [facility] [place] [id number] [place] [address] 63258- 9305 Dec, Hernia of abdominal cavity K46.9 [facility] [place] [id number] [place] [address] 52840- 6819 Dec, [facility] [place] [id number] [place] [address] 90188- 0340 Dec, Abdominal pain R10.9 [facility] [place] [address] 53837- 6911 Dec, [facility] [place] [id number] [place] [address] 99749- 7328 15 Nov, 2015 [facility] [address] [id number] Oct, Encounter for dental examination Z01.20 [place] [id number] [place] [address] 41189- 2499 Oct, [place] [id number] [place] [address] 79864- 433 Oct, Bipolar 1 disorder, mixed F31.60 ; Anxiety disorder, unspecified F41.9 and Major depressive disorder, single episode, unspecified F32.9 [place] [id number] [place] [address] 36818- 3844 Oct, Bipolar 1 disorder, mixed F31.60 [place] [id number] [place] [address] 03995- 1610 Oct, Anxiety disorder, unspecified F41.9 and Major depressive disorder, single episode, unspecified F32.[address] 58032- 6405 Sep, Bipolar 1 disorder, mixed F31.60 ; Anxiety disorder, unspecified F41.9 and Major depressive disorder, single episode, unspecified F32.9 [place] [id number] [place] [address] 80882- 2486 Sep, Bipolar 1 disorder, mixed F31.60 and Anxiety disorder, unspecified F41.9 [place] [id number] [place] [address] 83324- 0953 Sep, Bipolar 1 disorder, mixed F31.60 [place] [id number] [place] [address] 56383- 2724 Sep, Unspecified mood [affective] disorder F39 and Anxiety disorder, unspecified F41.9 [place] [id number] [place] [address] 73897- 2444 Apr, Eustachian tube dysfunction 381.81 ; Reactive airway disease 493.90 and Depression 311 [place] [address] 35232- 8303 Jan, [facility] [place] [facility] [address] [id number] [place] [address]- 1636 13 Jan, 2015 [facility] [address] [id number] [place] [address]- 3182 Oct, [facility] [place] [facility] [address] [id number] [place] [address]- 8736 Oct, [facility] [address] [id number] [place] [address]- 3070 Sep, [facility] [place] [facility] [address] [id number] [place] [address]- 6848 Sep, [facility] [address] [id number] [place] [address]- 2144 Sep, [facility] [place] [facility] [address] [id number] [place] [address]- 2216 Sep, [facility] [place] [facility] [address] [id number] [place] [address]- 6781 Apr, [facility] [address] [id number] [place] [address]- 1451 Apr, [facility] [place] [facility] [address] [id number] [place] [address]- 8725 Jan, [facility] [place] [facility] [address] [id number] [place] [address]- 4768 Jan, [facility] [place] [facility] [address] [id number] [place] [address]- 8081 Jan, [facility] [place] [facility] [address] [id number] [place] [address]- 5272 Jan, [facility] [place] [facility] [address] [id number] [place] [address]- 7253 Dec, [facility] [place] [facility] [address] [id number] [place] [address]- 1666 Dec, [facility] [place] [facility] [address] [id number] [place] [address]- 3159 Oct, [facility] [address] [id number] [place] [address]- 8511 Oct, [facility] [place] [facility] [address] [id number] [place] [address]- 9820 Sep, [facility] [place] [facility] [address] [id number] [place] [address]- 2031 Sep, [facility] [place] [facility] [address] [id number] [place] [address]- 8480 Sep, [facility] [place] [facility] [address] [id number] [place] [address]- 4479 Sep, [facility] [place] [facility] [address] [id number] [place] [address]- 2519 Aug, [facility] [place] [facility] [address] [id number] [place] [address]- 4297 Aug, [facility] [place] [facility] [address] [id number] [address]- 5452 Jul, [facility] [place] [facility] [address] [id number] [place] [address]- 4908 Jul, [facility] [place] [facility] [address] [id number] [address]- 4258 Jul, [facility] [place] [facility] [address] [id number] [address]- 7257 19 Jun, 2013 [facility] [place] [facility] [address] [id number] [address]- 6058 17 Jun, 2013 [facility] [place] [facility] [address] [id number] [place] [address]- 6013 09 Jun, 2013 [facility] [place] [facility] [address] [id number] [address]- 0816 15 Jan, 2013 [facility] [place] [facility] [address] [id number] [place] [address]- 9606 10 Jan, 2013 [facility] [place] [facility] [address] [id number] [place] [address]- 0627 05 Jan, 2013 [facility] [place] [facility] [address] [id number] [place] [address]- 7386 13 Dec, 2012 [facility] [place] [facility] [address] [id number] [place] [address]- 8296 17 Sep, 2012 [facility] [place] [facility] [address] [id number] [place] [address]- 3956 17 Sep, 2012 [facility] [place] [facility] [address] [id number] [place] [address]- 4018 14 Sep, 2012 [facility] [place] [facility] [address] [id number] [place] [address]- 8485 14 Sep, 2012 [facility] [place] [facility] [address] [id number] [place] [address]- 0464 13 Sep, 2012 [facility] [place] [facility] [address] [id number] [place] [address]- 7376 27 Aug, 2012 [facility] [place] [facility] [address] [id number] [place] [address]- 8709 27 Aug, 2012 [facility] [place] [facility] [address] [id number] [place] [address]- 3837 Aug, [facility] [place] [facility] [address] [facility] [id number] [place] [address]- 4152 Aug, [facility] [place] [facility] [address] [id number] [place] [address]- 8967 Aug, [facility] [place] [facility] [address] [id number] [place] [address]- 8247 Aug, [facility] [place] [facility] [address] [id number] [place] [address]- 0871 Aug, [facility] [place] [facility] [address] [facility] [id number] [place] [address]- 8845 Jul, [facility] [place] [facility] [address] [facility] [id number] [address]- 2562 Jul, [facility] [place] [facility] [address] [address]- 6943 Jul, [facility] [place] [address] [address]- 5416 May, [facility] [place] [address] [address]- 2128 Mar, [facility] [place] [address] [place] [address] 86034- 4975 Jan, [facility] [place] [address] [address]- 3822 Nov, [facility] [place] [id number] [place] [address] 34315- 4617 Aug, [facility] [place] [id number] [address]- 9680 Aug, [facility] [place] [id number] [place] [address] 61582- 3535 Jul, [facility] [place] [address] [address]- 7855 Jul, [facility] [place] [address] [address]- 6932 Jul, [facility] [place] [address] [address]- 1215 Aug, IMMUNIZATIONS No Known Immunizations SOCIAL HISTORY Never Assessed REASON FOR VISIT back pain x3 weeks-----Janel PLAN OF CARE Activity Details Follow Up 4 Weeks Reason:back pain VITAL SIGNS Height 63 in 2017-12-31 Weight 212 lbs 2017-12-31 Temperature 98.4 degrees Fahrenheit 2017-12-31 Heart Rate 70 bpm 2017-12-31 Respiratory Rate 20 2017-12-31 BMI 37.55 kg/m2 2017-12-31 Blood pressure systolic 122 mmHg 2017-12-31 Blood pressure diastolic 74 mmHg 2017-12-31 MEDICATIONS Medication Instructions Dosage Frequency Start Date End Date Duration Status GlyBURIDE 5 mg Orally twice a day 1 tablet with breakfast or the first main meal of the day 12h Not-Taking Effexor XR 75 MG Orally Once a day 1 capsule with food 24h Dec, 30 day(s) Active Gabapentin 100 mg Orally 2 times a day 1 capsule 12h Dec, 30 day(s) Active RESULTS Name Result Date Reference Range Xray : Spine, Lumbar 2-3 views (IN HOUSE) 2017-12-31 PROCEDURES Procedure Date Ordered Result Body Site X-RAY EXAM OF LOWER SPINE December 31, 2017 INSTRUCTIONS MEDICATIONS ADMINISTERED No Known Medications MEDICAL (GENERAL) HISTORY Type Description Date Medical History depression Medical History Unspecified breast screening Medical History Unspecified breast screening Surgical History section x 4 Surgical History dilatation and curettage Surgical History hernia repair 01/2016 Surgical History tubal ligation 12/03/17 Hospitalization History surgeries
--- OUTSIDE RECORDS SUMMARY | 2018-08-13 09:09 | XMS REPORT ---
Author Author DREW MONDRAGON Organization [facility] Address [address] [place] [address] Care Team Providers Care Customer Relations Consultant Name Role Phone DREW MONDRAGON Unavailable PROBLEMS Type Condition ICD9-CM Code OZR58-OF Code Onset Dates Condition Status SNOMED Code Problem Carpal tunnel syndrome 354.0 Active 55184281 Problem Bipolar 1 disorder, mixed F31.60 Active 43816104 Problem Reactive airway disease 493.90 Active 432587888350 Problem Personal history of tobacco use, presenting hazards to health V15.82 Active 4238825162038 Problem Diverticulitis of colon (without mention of hemorrhage) 562.11 Active 620647042 Problem 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 24348675 Problem Other chronic pain G89.29 Active 23581598 Problem Lumbago with sciatica, right side M54.41 Active 196016202 Problem Abdominal pain R10.9 Active 37190964 Problem Anxiety disorder, unspecified F41.9 Active 359730485 Problem History of gestational diabetes Z86.32 Active 693676952 Problem Amenorrhea N91.2 Active 91441825 ALLERGIES Substance Reaction Event Type Date Status Codeine nausea and vomiting Drug Allergy Jan, Active ENCOUNTERS Encounter Location Date Diagnosis [place] [id number] [place] [address] 68285- 0428 Jan, Bipolar 1 disorder, mixed F31.60 [facility] [id number] [place] [address] 42809- 3889 Jan, Acute suppurative otitis media of right ear without spontaneous rupture of tympanic membrane, recurrence not specified H66.001 [facility] [id number] [place] [address] 08419- 5175 Dec, Lumbago with sciatica, right side M54.41 ; Other chronic pain G89.29 ; Bipolar 1 disorder, mixed F31.60 ; History of gestational diabetes Z86.32 and Family history of diabetes mellitus Z83.3 [place] [address] 00[address]- [address]348 Sep, Acute non-recurrent maxillary sinusitis J01.00 and BMI 40.0- 44.9, adult Z68.41 [place] [address] 53179- 2768 Jul, [place] [address] [address] 5465 Jul, Acute bronchitis due to other specified organisms J20.[address] 665290- 4614 February, Amenorrhea N91.2 ; Lumbar radiculopathy M54.16 and Positive test Z32.[address] 08094- 3750 Dec, Tonsillitis J03.90 [place] [address] 21021- 0016 16 Nov, 2016 Wheezing R06.2 and Cough R05 [address] 84383- 2569 02 Nov, 2016 Lumbar radiculopathy M54.16 and IT band syndrome, right M76.[address] 17056- 3601 Oct, [place] [address] 64924- 0265 Oct, Abdominal pain R10.[address] 87463- 0587 Oct, LLQ abdominal pain R10.32 and Right hip pain M25.[address] 14150- 8228 Aug, Acute suppurative otitis media of left ear without spontaneous rupture of tympanic membrane, recurrence not specified H66.002 [facility] [id number] [place] [address] 24086- 3432 Jun, Anxiety disorder, unspecified F41.9 [facility] [id number] [place] [address] 72251- 1302 Mar, [facility] [address] 56183- 9966 February, 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 and Anxiety disorder, unspecified F41.9 [facility] [id number] [place] [address] 36040- 6863 February, [facility] [address] 95530- 9707 Jan, [facility] [address] 89023- 3290 Jan, senior care use of drug Z79.899 and Bipolar 1 disorder, mixed F31.60 [facility] [id number] [place] [address] 30316- 8973 Jan, [facility] [id number] [place] [address] 04136- 4048 Dec, Hernia of abdominal cavity K46.9 [facility] [id number] [place] [address] 99131- 0892 Dec, [facility] [id number] [place] [address] 92374- 5972 Dec, Abdominal pain R10.9 [facility] [id number] [place] [address] 40612- 6660 Dec, [facility] [address] 37646- 0252 15 Nov, 2015 [facility] [id number] [place] [address] [id number] Oct, Encounter for dental examination Z01.20 [place] [id number] [place] [address] 43183- 2837 Oct, [place] [address] 42668- 0201 Oct, Bipolar 1 disorder, mixed F31.60 ; Anxiety disorder, unspecified F41.9 and Major depressive disorder, single episode, unspecified F32.9 [place] [id number] [place] [address] 66241- 6317 Oct, Bipolar 1 disorder, mixed F31.60 [place] [id number] [place] [address] 33933- 5072 Oct, Anxiety disorder, unspecified F41.9 and Major depressive disorder, single episode, unspecified F32.9 [place] [address] 26390- 8799 Sep, Bipolar 1 disorder, mixed F31.60 ; Anxiety disorder, unspecified F41.9 and Major depressive disorder, single episode, unspecified F32.9 [place] [id number] [place] [address] 75490- 3786 Sep, Bipolar 1 disorder, mixed F31.60 and Anxiety disorder, unspecified F41.9 [place] [id number] [place] [address] 34224- 2772 Sep, Bipolar 1 disorder, mixed F31.60 [place] [id number] [place] [address] 07726- 6177 Sep, Unspecified mood [affective] disorder F39 and Anxiety disorder, unspecified F41.9 [place] [id number] [place] [address] 81519- 1689 Apr, Eustachian tube dysfunction 381.81 ; Reactive airway disease 493.90 and Depression [address] [place] [id number] [place] [address] 39233- 2104 Jan, [place] [address] [place] [address]- 6112 13 Jan, 2015 [facility] [address] [id number] [place] [address]- 2159 Oct, [facility] [place] [facility] [address] [id number] [place] [address]- 4577 Oct, [facility] [place] [facility] [address] [id number] [place] [address]- 9124 Sep, [facility] [place] [facility] [address] [id number] [place] [address]- 2656 Sep, [facility] [place] [facility] [address] [id number] [place] [address]- 3737 Sep, [facility] [place] [facility] [address] [id number] [place] [address]- 5282 Sep, [facility] [place] [facility] [address] [id number] [place] [address]- 1026 Apr, [facility] [place] [facility] [address] [id number] [place] [address]- 1175 Apr, [facility] [place] [facility] [address] [id number] [place] [address]- 2140 Jan, [facility] [place] [facility] [address] [id number] [place] [address]- 1510 Jan, [facility] [place] [facility] [address] [id number] [place] [address]- 1087 Jan, [facility] [place] [facility] [address] [id number] [place] [address]- 3717 Jan, [facility] [place] [facility] [address] [id number] [place] [address]- 8621 Dec, [facility] [place] [facility] [address] [id number] [place] [address]- 6352 Dec, [facility] [place] [facility] [address] [id number] [place] [address]- 0041 Oct, [facility] [place] [facility] [address] [id number] [place] [address]- 0471 Oct, [facility] [place] [facility] [address] [id number] [place] [address]- 1581 Sep, [facility] [place] [facility] [address] [id number] [place] [address]- 6272 Sep, [facility] [place] [facility] [address] [id number] [place] [address]- 9034 Sep, [facility] [place] [facility] [address] [id number] [place] [address]- 6589 Sep, [facility] [place] [facility] [address] [id number] [place] [address]- 1282 Aug, [facility] [place] [facility] [address] [id number] [place] [address]- 5287 Aug, [facility] [place] [facility] [address] [id number] [place] [address]- 0008 Jul, [facility] [place] [facility] [address] [id number] [place] [address]- 3377 Jul, [facility] [place] [facility] [address] [id number] [place] [address]- 1835 Jul, [facility] [place] [facility] [address] [id number] [place] [address]- 9163 19 Jun, 2013 [facility] [place] [facility] [address] [id number] [place] [address]- 9934 17 Jun, 2013 [facility] [place] [facility] [address] [id number] [place] [address]- 1238 09 Jun, 2013 [facility] [place] [facility] [address] [id number] [place] [address]- 2781 15 Jan, 2013 [facility] [place] [facility] [address] [id number] [place] [address]- 9871 10 Jan, 2013 [facility] [place] [facility] [address] [id number] [place] [address]- 5525 05 Jan, 2013 [facility] [place] [facility] [address] [id number] [place] [address]- 9604 13 Dec, 2012 [facility] [place] [facility] [address] [id number] [place] [address]- 6196 17 Sep, 2012 [facility] [place] [facility] [address] [facility] [id number] [place] [address]- 1116 17 Sep, 2012 [facility] [place] [facility] [address] [id number] [place] [address]- 2182 14 Sep, 2012 [facility] [place] [facility] [address] [id number] [place] [address]- 6480 14 Sep, 2012 [facility] [place] [facility] [address] [id number] [place] [address]- 6501 Sep, [facility] [place] [facility] [address] [id number] [place] [address]- 8033 Aug, [facility] [place] [facility] [address] [id number] [place] [address]- 8652 Aug, [facility] [place] [facility] [address] [id number] [place] [address]- 9631 Aug, [facility] [place] [facility] [address] [facility] [id number] [place] [address]- 3862 Aug, [facility] [place] [facility] [address] [id number] [place] [address]- 4494 Aug, [facility] [place] [facility] [address] [id number] [place] [address]- 1564 Aug, [facility] [place] [facility] [address] [id number] [place] [address]- 3913 Aug, [facility] [place] [facility] [address] [facility] [id number] [place] [address]- 7109 Jul, [facility] [place] [facility] [address] [facility] [id number] [place] [address]- 9497 Jul, [facility] [place] [facility] [address] [address]- 7736 Jul, [facility] [address] [address]- 4856 May, [facility] [address] [address]- 6346 Mar, [facility] [address] [address]- 8742 Jan, [facility] [id number] [place] [address] 18140- 8844 Nov, [facility] [id number] [place] [address] 89319- 0435 Aug, [facility] [id number] [place] [address] 97064- 4356 Aug, [facility] [id number] [place] [address] 35297- 8788 Jul, [facility] [address] [address]- 4282 Jul, [facility] [id number] [place] [address] 26447- 2850 Jul, [facility] [address] [address]- 9900 Aug, IMMUNIZATIONS No Known Immunizations SOCIAL HISTORY Never Assessed REASON FOR VISIT sore throat, congestion, cough, loss hearing in left ear [facility] PLAN OF CARE VITAL SIGNS Height 63 in 2018-01-22 Weight 208 lbs 2018-01-22 Temperature 98.8 degrees Fahrenheit 2018-01-22 Heart Rate 84 bpm 2018-01-22 Respiratory Rate 20 2018-01-22 BMI 36.84 kg/m2 2018-01-22 Blood pressure systolic 126 mmHg 2018-01-22 Blood pressure diastolic 74 mmHg 2018-01-22 MEDICATIONS Medication Instructions Dosage Frequency Start Date End Date Duration Status GlyBURIDE 5 mg Orally twice a day 1 tablet with breakfast or the first main meal of the day 12h Not-Taking Effexor XR 75 MG Orally Once a day 1 capsule with food 24h Dec, 30 day(s) Active Amoxicillin 500 mg Orally every 8 hrs 1 capsule 8h Jan, Jan, 10 day(s) Active Gabapentin 100 mg Orally 2 times a day 1 capsule 12h Dec, 30 day(s) Active PredniSONE 20 mg Orally Once a day 2 tablets 24h Jan, Jan, 05 days Active RESULTS No Results PROCEDURES No Known procedures INSTRUCTIONS MEDICATIONS ADMINISTERED No Known Medications MEDICAL (GENERAL) HISTORY Type Description Date Medical History depression Medical History Unspecified breast screening Medical History Unspecified breast screening Surgical History section x 4 Surgical History dilatation and curettage Surgical History hernia repair 01/2016 Surgical History tubal ligation 12/03/17 Hospitalization History surgeries
--- OUTSIDE RECORDS SUMMARY | 2018-08-13 09:09 | XMS REPORT ---
Author Author SAMIR BRANDON Organization [facility] Address [address] [place] [address] Care Team Providers Care Commercial Manager Name Role Phone SAMIR BRANDON Unavailable PROBLEMS Type Condition ICD9-CM Code GTS30-UL Code Onset Dates Condition Status SNOMED Code Problem Carpal tunnel syndrome 354.0 Active 59773585 Problem Bipolar 1 disorder, mixed F31.60 Active 68764389 Problem Reactive airway disease 493.90 Active 527173073627 Problem Personal history of tobacco use, presenting hazards to health V15.82 Active 4755127269375 Problem Diverticulitis of colon (without mention of hemorrhage) 562.11 Active 769143204 Problem 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 12730839 Problem Other chronic pain G89.29 Active 39913578 Problem Lumbago with sciatica, right side M54.41 Active 458617696 Problem Abdominal pain R10.9 Active 20498999 Problem Anxiety disorder, unspecified F41.9 Active 086172588 Problem History of gestational diabetes Z86.32 Active 430058855 Problem Amenorrhea N91.2 Active 05985039 ALLERGIES No Information ENCOUNTERS Encounter Location Date Diagnosis [place] [id number] [place] [address]73- 6660 Jan, Bipolar 1 disorder, mixed F31.60 [facility] [address] [place] [id number] [place] [address] 65534- 7940 Jan, Acute suppurative otitis media of right ear without spontaneous rupture of tympanic membrane, recurrence not specified H66.001 [place] [address] [place] [id number] [place] [address] 40689- 9356 Dec, Lumbago with sciatica, right side M54.41 ; Other chronic pain G89.29 ; Bipolar 1 disorder, mixed F31.60 ; History of gestational diabetes Z86.32 and Family history of diabetes mellitus Z83.3 [place] [address] [address]- [address]184 Sep, Acute non-recurrent maxillary sinusitis J01.00 and BMI 40.0- 44.9, adult Z68.41 [place] [address] 71463- 1085 Jul, [place] [address] 02178- 7274 Jul, Acute bronchitis due to other specified organisms J20.[address] [address]- 6923 February, Amenorrhea N91.2 ; Lumbar radiculopathy M54.16 and Positive test Z32.01 [place] [address] 01131- 9223 Dec, Tonsillitis J03.90 [place] [address] 87746- 0389 16 Nov, 2016 Wheezing R06.2 and Cough R05 [place] [address] 87163- 8750 02 Nov, 2016 Lumbar radiculopathy M54.16 and IT band syndrome, right M76.31 [place] [address] 93644- 5276 Oct, [place] [address] 30971- 7308 Oct, Abdominal pain R10.[address] 86749- 0309 Oct, LLQ abdominal pain R10.32 and Right hip pain M25.551 [place] [address] 08437- 7386 Aug, Acute suppurative otitis media of left ear without spontaneous rupture of tympanic membrane, recurrence not specified H66.002 [facility] [id number] [place] [address] 35806- 9188 Jun, Anxiety disorder, unspecified F41.9 [facility] [address] [place] [place] [id number] [place] [address] 22218- 9691 Mar, [facility] [address] [id number] [place] [address] 80790- 2337 February, 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 and Anxiety disorder, unspecified F41.9 [facility] [address] [place] [place] [id number] [place] [address] 46039- 0131 February, [facility] [address] [place] [place] [id number] [place] [address] 28428- 5948 Jan, [facility] [address] [id number] [place] [address] 80919- 9620 Jan, 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 and Bipolar 1 disorder, mixed F31.60 [facility] [address] [place] [id number] [place] [address] 36794- 2557 Jan, [facility] [address] [id number] [place] [address] 03832- 3957 Dec, Hernia of abdominal cavity K46.9 [facility] [address] [place] [address] [id number] [place] [address] 07497- 3144 Dec, [facility] [address] [id number] [place] [address] 12922- 0233 Dec, Abdominal pain R10.9 [facility] [address] [id number] [place] [address] 47557- 2460 Dec, [facility] [address] [place] [place] [id number] [place] [address] 14000- 0089 15 Nov, 2015 [facility] [address] [place] [address] [id number] [place] [address] [id number] Oct, Encounter for dental examination Z01.20 [facility] [address] [place] [place] [id number] [address] 8[address] Oct, [place] [address] [place] [id number] [place] [address] 50272- 1279 Oct, Bipolar 1 disorder, mixed F31.60 ; Anxiety disorder, unspecified F41.9 and Major depressive disorder, single episode, unspecified F32.9 [place] [address] [place] [id number] [place] [address] 98990- 0165 Oct, Bipolar 1 disorder, mixed F31.60 [place] [address] [place] [id number] [place] [address] 17653- 9846 Oct, Anxiety disorder, unspecified F41.9 and Major depressive disorder, single episode, unspecified F32.9 [place] [address] [place] [id number] [place] [address] 06908- 4600 Sep, Bipolar 1 disorder, mixed F31.60 ; Anxiety disorder, unspecified F41.9 and Major depressive disorder, single episode, unspecified F32.9 [place] [address] [place] [id number] [place] [address] 63445- 1515 Sep, Bipolar 1 disorder, mixed F31.60 and Anxiety disorder, unspecified F41.9 [place] [address] [place] [id number] [place] [address] 03462- 7939 Sep, Bipolar 1 disorder, mixed F31.60 [place] [address] [place] [id number] [place] [address] 90637- 4475 Sep, Unspecified mood [affective] disorder F39 and Anxiety disorder, unspecified F41.9 [place] [address] [place] [id number] [place] [address] 13641- 9969 Apr, Eustachian tube dysfunction 381.81 ; Reactive airway disease 493.90 and Depression 311 [place] [address] [place] [id number] [place] [address] 96230- 0269 Jan, [place] [address] [place] [id number] [place] [address] 83716- 1783 Jan, [facility] [place] [facility] [address] [id number] [place] [address]- 5740 Oct, [facility] [place] [facility] [address] [id number] [place] [address]- 0123 Oct, [facility] [place] [facility] [address] [id number] [place] [address]- 8557 Sep, [facility] [place] [facility] [address] [id number] [place] [address]- 1397 Sep, [facility] [place] [facility] [address] [id number] [place] [address]- 5128 Sep, [facility] [place] [facility] [address] [id number] [place] [address]- 2482 Sep, [facility] [place] [facility] [address] [id number] [place] [address]- 5223 Apr, [facility] [place] [facility] [address] [id number] [place] [address]- 9973 Apr, [facility] [place] [facility] [address] [id number] [place] [address]- 4788 Jan, [facility] [place] [facility] [address] [id number] [place] [address]- 9286 Jan, [facility] [place] [facility] [address] [id number] [place] [address]- 5582 Jan, [facility] [place] [facility] [address] [id number] [place] [address]- 2463 Jan, [facility] [place] [facility] [address] [id number] [place] [address]- 9029 Dec, [facility] [place] [facility] [address] [id number] [place] [address]- 3402 Dec, [facility] [place] [facility] [address] [id number] [place] [address]- 8019 Oct, [facility] [place] [facility] [address] [id number] [place] [address]- 5860 09 Oct, 2013 [facility] [address] [id number] [place] [address]- 3542 16 Sep, 2013 [facility] [address] [id number] [place] [address]- 1152 16 Sep, 2013 [facility] [address] [id number] [place] [address]- 8536 Sep, [facility] [address] [id number] [place] [address]- 7183 Sep, [facility] [address] [id number] [place] [address]- 4699 Aug, [facility] [address] [id number] [place] [address]- 5086 Aug, [facility] [address] [id number] [place] [address]- 8582 Jul, [facility] [address] [id number] [place] [address]- 0294 10 Jul, 2013 [facility] [address] [id number] [place] [address]- 0877 Jul, [facility] [address] [id number] [place] [address]- 4504 19 Jun, 2013 [facility] [address] [id number] [place] [address]- 0497 17 Jun, 2013 [facility] [address] [id number] [place] [address]- 9327 09 Jun, 2013 [facility] [address] [id number] [place] [address]- 7004 15 Jan, 2013 [facility] [place] [facility] [address] [id number] [place] [address]- 6439 10 Jan, 2013 [facility] [address] [id number] [place] [address]- 0011 05 Jan, 2013 [facility] [place] [facility] [address] [id number] [place] [address]- 9965 13 Dec, 2012 [facility] [place] [facility] [address] [id number] [place] [address]- 4322 17 Sep, 2012 [facility] [place] [facility] [address] [id number] [place] [address]- 2823 17 Sep, 2012 [facility] [place] [facility] [address] [id number] [place] [address]- 3958 14 Sep, 2012 [facility] [place] [facility] [address] [id number] [place] [address]- 4565 14 Sep, 2012 [facility] [place] [facility] [address] [id number] [place] [address]- 1434 13 Sep, 2012 [facility] [place] [facility] [address] [id number] [place] [address]- 3609 Aug, [facility] [place] [facility] [address] [id number] [place] [address]- 7538 27 Aug, 2012 [facility] [place] [facility] [address] [id number] [place] [address]- 4792 Aug, [facility] [place] [facility] [address] [id number] [place] [address]- 0566 Aug, [facility] [place] [facility] [address] [facility] [id number] [place] [address]- 3308 Aug, [facility] [place] [facility] [address] [id number], [place] [address]- 8926 Aug, [facility] [place] [facility] [address] [id number] [place] [address]- 1067 Aug, [facility] [place] [facility] [address] [id number] [place] [address]- 1387 Jul, [facility] [place] [facility] [address] [id number], [place] [address]- 7613 Jul, [facility] [place] [facility] [address] [id number], [place] [address]- 2546 Jul, [facility] [address] [place] [address]- 4346 May, [facility] [address] [place] [address]- 8876 Mar, [facility] [address] [place] [address]- 5696 Jan, [facility] [address] [place] [address]- 7626 Nov, [facility] [address] [place] [address]- 2796 Aug, [facility] [address] [place] [address]- 8045 Aug, [facility] [address] [place] [address]- 8250 Jul, [facility] [address] [place] [address]- 1432 Jul, [facility] [address] [place] [address]- 8467 Jul, [facility] [address] [place] [address]- 1386 Aug, IMMUNIZATIONS No Known Immunizations SOCIAL HISTORY Never Assessed REASON FOR VISIT PALS/REXULTI PLAN OF CARE VITAL SIGNS MEDICATIONS Medication Instructions Dosage Frequency Start Date End Date Duration Status Rexulti 3 MG Orally Once a day 1 tablet 24h Jan, 90 days Active RESULTS No Results PROCEDURES No [...]
--- OUTSIDE RECORDS SUMMARY | 2018-08-13 09:09 | XMS REPORT ---
Author Author SAMIR BRANDON Organization [facility] Address [address] [place] [address] Care Team Providers Care Wildlife Photographer Name Role Phone SAMIR BRANDON Unavailable PROBLEMS Type Condition ICD9-CM Code WVC06-TN Code Onset Dates Condition Status SNOMED Code Problem Carpal tunnel syndrome 354.0 Active 95008865 Problem Bipolar 1 disorder, mixed F31.60 Active 47292643 Problem Reactive airway disease 493.90 Active 688987586167 Problem Personal history of tobacco use, presenting hazards to health V15.82 Active 6689728330569 Problem Diverticulitis of colon (without mention of hemorrhage) 562.11 Active 501565076 Problem 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 81993711 Problem Other chronic pain G89.29 Active 27502225 Problem Lumbago with sciatica, right side M54.41 Active 728005961 Problem Abdominal pain R10.9 Active 70869500 Problem Anxiety disorder, unspecified F41.9 Active 751769867 Problem History of gestational diabetes Z86.32 Active 320945342 Problem Amenorrhea N91.2 Active 97227018 ALLERGIES Substance Reaction Event Type Date Status Codeine nausea and vomiting Drug Allergy Sep, Active ENCOUNTERS Encounter Location Date Diagnosis [facility] [id number] [place] [address]- [address] Jan, Bipolar 1 disorder, mixed F31.60 [facility] [id number] [place] [address]- [address] Jan, Acute suppurative otitis media of right ear without spontaneous rupture of tympanic membrane, recurrence not specified H66.001 [place] [id number] [address] Dec, Lumbago with sciatica, right side M54.41 ; Other chronic pain G89.29 ; Bipolar 1 disorder, mixed F31.60 ; History of gestational diabetes Z86.32 and Family history of diabetes mellitus Z83.3 [place] [address] [address] Sep, Acute non-recurrent maxillary sinusitis J01.00 and BMI 40.0- 44.9, adult Z68.[address] [address] Jul, [place] [address] [address] Jul, Acute bronchitis due to other specified organisms J20.[address] [address] February, Amenorrhea N91.2 ; Lumbar radiculopathy M54.16 and Positive test Z32.[address] [address]- 7974 Dec, Tonsillitis J03.[address] [address]- [address] 16 Nov, 2016 Wheezing R06.2 and Cough R05 [address] [address]- [address] 02 Nov, 2016 Lumbar radiculopathy M54.16 and IT band syndrome, right M76.[address] [address]- [address] Oct, [address] [address]- [address] Oct, Abdominal pain R10.[address] [address]- [address] Oct, LLQ abdominal pain R10.32 and Right hip pain M25.[address] [address]- [address] Aug, Acute suppurative otitis media of left ear without spontaneous rupture of tympanic membrane, recurrence not specified H66.002 [facility] [id number] [place] [address]9110- [address]13 Jun, Anxiety disorder, unspecified F41.9 [facility] [id number] [place] [address]67- 2624 Mar, [facility] [address] [address] February, long term use of drug Z79.899 and Anxiety disorder, unspecified F41.9 [facility] [id number] [place] [address]6894- 5799 February, [facility] [id number] [place] [address] 21200- 3300 Jan, [facility] [address] [address]- [address] Jan, [facility] use of drug Z79.899 and Bipolar 1 disorder, mixed F31.60 [facility] [id number] [place] [address]- 1989 Jan, [facility] [id number] [place] [address] 04067- 7953 Dec, Hernia of abdominal cavity K46.9 [facility] [id number] [place] [address] 11185- 2633 Dec, [facility] [id number] [place] [address] 16599- 3684 Dec, Abdominal pain R10.9 [facility] [address] [address]- [address] Dec, [facility] [id number] [place] [address] 47388- 7620 15 Nov, 2015 [facility] [address] [id number] Oct, Encounter for dental examination Z01.20 [place] [id number] [place] [address] 07400- 7313 Oct, [place] [id number] [place] [address] 88065- 762 Oct, Bipolar 1 disorder, mixed F31.60 ; Anxiety disorder, unspecified F41.9 and Major depressive disorder, single episode, unspecified F32.9 [place] [id number] [place] [address] 59098- 7750 Oct, Bipolar 1 disorder, mixed F31.60 [place] [id number] [place] [address] 45782- 5028 Oct, Anxiety disorder, unspecified F41.9 and Major depressive disorder, single episode, unspecified F32.[address] [address]- [address] Sep, Bipolar 1 disorder, mixed F31.60 ; Anxiety disorder, unspecified F41.9 and Major depressive disorder, single episode, unspecified F32.9 [place] [id number] [place] [address] 13639- 6432 Sep, Bipolar 1 disorder, mixed F31.60 and Anxiety disorder, unspecified F41.9 [place] [id number] [place] [address] 85123- 2874 Sep, Bipolar 1 disorder, mixed F31.60 [place] [id number] [place] [address] 80156- 3200 Sep, Unspecified mood [affective] disorder F39 and Anxiety disorder, unspecified F41.9 [place] [id number] [place] [address] 37[address]- 6654 Apr, Eustachian tube dysfunction 381.81 ; Reactive airway disease 493.90 and Depression [address] [place] [address] [address]- 37[address] Jan, [facility] [place] [facility] [address] [id number] [place] [address] 9440 13 Jan, 2015 [facility] [address] [id number] [place] [address]- 5074 Oct, [facility] [place] [facility] [address] [id number] [place] [address]- 7710 Oct, [facility] [address] [id number] [place] [address]- 2993 Sep, [facility] [place] [facility] [address] [id number] [place] [address]- 4055 Sep, [facility] [address] [id number] [place] [address]- 3491 Sep, [facility] [place] [facility] [address] [id number] [place] [address]- 8140 Sep, [facility] [place] [facility] [address] [id number] [place] [address]- 7030 Apr, [facility] [address] [id number] [place] [address]- 7599 Apr, [facility] [place] [facility] [address] [id number] [place] [address]- 3576 Jan, [facility] [place] [facility] [address] [id number] [place] [address]- 6366 Jan, [facility] [place] [facility] [address] [id number] [place] [address]- 9240 Jan, [facility] [place] [facility] [address] [id number] [place] [address]- 2368 Jan, [facility] [place] [facility] [address] [id number] [place] [address]- 8504 Dec, [facility] [place] [facility] [address] [id number] [place] [address]- 8686 Dec, [facility] [place] [facility] [address] [id number] [place] [address]- 0558 Oct, [facility] [address] [id number] [place] [address]- 8525 Oct, [facility] [place] [facility] [address] [id number] [place] [address]- 2131 Sep, [facility] [place] [facility] [address] [id number] [place] [address]- 6206 Sep, [facility] [place] [facility] [address] [id number] [place] [address]- 1897 Sep, [facility] [place] [facility] [address] [id number] [place] [address]- 6888 Sep, [facility] [place] [facility] [address] [id number] [place] [address]- 7040 Aug, [facility] [place] [facility] [address] [id number] [place] [address]- 6436 Aug, [facility] [place] [facility] [address] [id number], [place] [address]- 0741 Jul, [facility] [place] [facility] [address] [id number] [place] [address]- 7625 Jul, [facility] [place] [facility] [address] [id number], [place] [address]- 9300 Jul, [facility] [place] [facility] [address] [id number], [place] [address]- 8223 19 Jun, 2013 [facility] [place] [facility] [address] [id number], [place] [address]- 1745 17 Jun, 2013 [facility] [place] [facility] [address] [id number] [place] [address]- 3965 09 Jun, 2013 [facility] [place] [facility] [address] [id number], [place] [address]- 9180 15 Jan, 2013 [facility] [place] [facility] [address] [id number] [place] [address]- 1075 10 Jan, 2013 [facility] [place] [facility] [address] [id number] [place] [address]- 2720 05 Jan, 2013 [facility] [place] [facility] [address] [id number] [place] [address]- 3442 13 Dec, 2012 [facility] [place] [facility] [address] [id number] [place] [address]- 9166 17 Sep, 2012 [facility] [place] [facility] [address] [id number] [place] [address]- 5976 17 Sep, 2012 [facility] [place] [facility] [address] [id number] [place] [address]- 7143 14 Sep, 2012 [facility] [place] [facility] [address] [id number] [place] [address]- 2050 14 Sep, 2012 [facility] [place] [facility] [address] [id number] [place] [address]- 2333 13 Sep, 2012 [facility] [place] [facility] [address] [id number] [place] [address]- 1911 27 Aug, 2012 [facility] [place] [facility] [address] [id number] [place] [address]- 2439 27 Aug, 2012 [facility] [place] [facility] [address] [id number] [place] [address]- 6490 Aug, [facility] [place] [facility] [address] [facility] [id number] [place] [address]- 1398 Aug, [facility] [place] [facility] [address] [id number] [place] [address]- 4614 Aug, [facility] [place] [facility] [address] [id number] [place] [address]- 6021 Aug, [facility] [place] [facility] [address] [id number] [place] [address]- 0414 Aug, [facility] [place] [facility] [address] [facility] [id number] [place] [address]- 4611 Jul, [facility] [place] [facility] [address] [facility] [id number], [place] [address]- 9427 Jul, [facility] [place] [facility] [address] [address]- 7440 Jul, [facility] [address] [address]- 9[address] May, [facility] [address] [address]- 7314 Mar, [facility] [id number] [place] [address]37- 5104 Jan, [facility] [id number] [place] [address] 42011- 8452 Nov, [facility] [id number] [place] [address] 53849- 8888 Aug, [facility] [id number] [place] [address] 960409- 3153 Aug, [facility] [id number] [place] [address] 38087- 8677 Jul, [facility] [id number] [place] [address] 97937- 2848 Jul, [facility] [id number] [place] [address] 99551- 1560 Jul, [facility] [address] [address]- 1675 Aug, IMMUNIZATIONS No Known Immunizations SOCIAL HISTORY Never Assessed REASON FOR VISIT sinus infection/ear pain x2 days----kelly Islas fever, 37 weeks , Csection scheduled for next Friday PLAN OF CARE Activity Details Follow Up prn Reason: VITAL SIGNS Height 63 in 2017-10-08 Weight 228 lbs 2017-10-08 Temperature 98.1 degrees Fahrenheit 2017-10-08 Heart Rate 90 bpm 2017-10-08 Respiratory Rate 2017-10-08 BMI 40.38 kg/m2 2017-10-08 Blood pressure systolic 100 mmHg 2017-10-08 Blood pressure diastolic 60 mmHg 2017-10-08 MEDICATIONS Medication Instructions Dosage Frequency Start Date End Date Duration Status Zithromax Z-Rei 250 MG Orally Once a day 2 tablets on the first day, then 1 tablet daily for 4 days 24h Sep, Sep, 5 day(s) Active GlyBURIDE 5 mg Orally twice a day 1 tablet with breakfast or the first main meal of the day 12h Active RESULTS No Results PROCEDURES No Known procedures INSTRUCTIONS MEDICATIONS ADMINISTERED No Known Medications MEDICAL (GENERAL) HISTORY Type Description Date Medical History depression Medical History Unspecified breast screening Medical History Unspecified breast screening Surgical History section x 4 Surgical History dilatation and curettage Surgical History hernia repair 01/2016 Surgical History tubal ligation 12/03/17 Hospitalization History surgeries
--- OUTSIDE RECORDS SUMMARY | 2018-08-13 09:10 | XMS REPORT ---
Author Author ADIS NEVILLE Organization [employer] Address Unknown Phone Unavailable Care Team Providers Care Director [facility] Name Role Phone ADIS NEVILLE CP Unavailable Allergies No Known Allergies Problems Problem Type Condition Code Onset Dates Condition Status Problem examination or test, positive result V72.42 Active Problem Carpal tunnel syndrome 354.0 Active Problem Lumbago 724.2 Active Problem Bipolar 1 disorder, mixed F31.60 Active Problem Reactive airway disease 493.90 Active Problem Anxiety disorder, unspecified F41.9 Active Problem Abdominal pain, left lower quadrant 789.04 Active Problem General counseling for prescription of oral contraceptives V25.01 Active Problem Dysuria 788.1 Active Problem Acute upper respiratory infections of unspecified site 465.9 Active Assessment Bipolar 1 disorder, mixed F31.60 Active Problem Diverticulitis of colon (without mention of hemorrhage) 562.11 Active Problem Screening for malignant neoplasm of the cervix V76.2 Active Problem Personal history of tobacco use, presenting hazards to health V15.82 Active Problem Unspecified breast screening V76.10 Active Problem Absence of menstruation 626.0 Active Problem Special screening examination, human papillomavirus [HPV] V73.81 Active Problem 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
--- OUTSIDE RECORDS SUMMARY | 2018-08-13 09:10 | XMS REPORT ---
Author Author ADIS NEVILLE Organization [employer] Address Unknown Phone Unavailable Care Team Providers Care Garment Tag Stringer Name Role Phone ADIS NEVILLE CP Unavailable Allergies No Known Allergies Problems Problem Type Condition Code Onset Dates Condition Status Problem Lumbago 724.2 Active Problem General counseling for prescription of oral contraceptives V25.01 Active Problem Carpal tunnel syndrome 354.0 Active Problem Anxiety disorder, unspecified F41.9 Active Problem Bipolar 1 disorder, mixed F31.60 Active Problem Unspecified mood [affective] disorder F39 Active Problem Acute upper respiratory infections of unspecified site 465.9 Active Problem Abdominal pain, left lower quadrant 789.04 Active Problem Reactive airway disease 493.90 Active Problem Dysuria 788.1 Active Problem Diverticulitis of colon (without mention of hemorrhage) 562.11 Active Problem Unspecified breast screening V76.10 Active Assessment Anxiety disorder, unspecified F41.9 Active Assessment Unspecified mood [affective] disorder F39 Active Problem Personal history of tobacco use, presenting hazards to health V15.82 Active Problem Absence of menstruation 626.0 Active Problem Special screening examination, human papillomavirus [HPV] V73.81 Active Problem 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
--- OUTSIDE RECORDS SUMMARY | 2018-08-13 09:10 | XMS REPORT ---
Author Author EVAN PARRY [facility] Address [address] [place] [address] Care Team Providers Care Thread Laster Name Role Phone SOHANEVAN Unavailable PROBLEMS Type Condition ICD9-CM Code MDJ23-OZ Code Onset Dates Condition Status SNOMED Code Problem Carpal tunnel syndrome 354.0 Active 29087859 Problem Abdominal pain, left lower quadrant 789.04 Active 088423136 Problem General counseling for prescription of oral contraceptives V25.01 Active 827767622 Problem Abdominal pain R10.9 Active 45609881 Problem Anxiety disorder, unspecified F41.9 Active 945002152 Problem Dysuria 788.1 Active 18465147 Problem Acute upper respiratory infections of unspecified site 465.9 Active 50477923 Problem Bipolar 1 disorder, mixed F31.60 Active 56658673 Problem Reactive airway disease 493.90 Active 495989090022 Problem Unspecified breast screening V76.10 Active 770884935 Problem Special screening examination, human papillomavirus [HPV] V73.81 Active 084379646 Problem Diverticulitis of colon (without mention of hemorrhage) 562.11 Active 173363832 Problem Absence of menstruation 626.0 Active 12252406 Problem 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 39779090 Problem Screening for malignant neoplasm of the cervix V76.2 Active 482411112 Problem examination or test, positive result V72.42 Active 876255729 Problem Personal history of tobacco use, presenting hazards to health V15.82 Active 3762333743784 Problem Lumbago 724.2 Active 325171100 ALLERGIES Substance Reaction Event Type Date Status Codeine Unknown Drug Allergy Jun, Active SOCIAL HISTORY No smoking Hx information available PLAN OF CARE VITAL SIGNS Height 63 in 2016-06-25 Weight 219.0 lbs 2016-06-25 Heart Rate 80 bpm 2016-06-25 Respiratory Rate 20 2016-06-25 BMI 38.79 kg/m2 2016-06-25 Blood pressure systolic 128 mmHg 2016-06-25 Blood pressure diastolic 76 mmHg 2016-06-25 MEDICATIONS Medication Instructions Dosage Frequency Start Date End Date Duration Status Effexor XR 75 MG Orally Once a day 1 capsule with food 24h Apr, Active RESULTS Name Result Date Reference Range TEST, URINE (IN HOUSE) 2016-06-25 RESULTS Negative Lot # [id number] Control + Exp date URINE DRUG SCREEN (IN HOUSE) 2016-06-25 Lot # [id number] Exp date Control + COCAINE Negative AMPH Negative MTD Negative THC Positive OPIATE Negative BENZO Negative PCP Negative BAR Negative OXY Negative MAMP Negative TCA Negative MDMA Negative PROCEDURES Procedure Date Ordered Related Diagnosis Body Site DRUG SCREEN NON TLC DEVICES Jun 25, 2016 URINE TEST Jun 25, 2016 Office Visit, Est Pt., Level 3 Jun 25, 2016 IMMUNIZATIONS No Known Immunizations
--- OUTSIDE RECORDS SUMMARY | 2018-08-13 09:10 | XMS REPORT ---
Author Author ALEXANDREA LAWSON Organization [employer] Address Unknown Phone Unavailable Care Team Providers Care Front Load Trash Truck Driver Name Role Phone ALEXANDREA LAWSON CP Unavailable Allergies, Adverse Reactions, Alerts Substance Reaction Event Type Codeine nausea and vomiting Drug Allergy Problems Problem Type Condition Code Onset Dates Condition Status Problem Lumbago 724.2 Active Problem General counseling for prescription of oral contraceptives V25.01 Active Problem Carpal tunnel syndrome 354.0 Active Problem Anxiety disorder, unspecified F41.9 Active Problem Bipolar 1 disorder, mixed F31.60 Active Problem Abdominal pain R10.9 Active Problem Acute upper respiratory infections of unspecified site 465.9 Active Problem Abdominal pain, left lower quadrant 789.04 Active Problem Reactive airway disease 493.90 Active Problem Dysuria 788.1 Active Problem Diverticulitis of colon (without mention of hemorrhage) 562.11 Active Problem Unspecified breast screening V76.10 Active Assessment Acute suppurative otitis media of left ear without spontaneous rupture of tympanic membrane, recurrence not specified H66.002 Active Problem Personal history of tobacco use, presenting hazards to health V15.82 Active Problem Absence of menstruation 626.0 Active Problem Special screening examination, human papillomavirus [HPV] V73.81 Active Problem 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 Problem Screening for malignant neoplasm of the cervix V76.2 Active Problem examination or test, positive result V72.42 Active Medications Medication Code System Code Instructions Start Date End Date Status Dosage Amoxicillin [facility] [address]-39 500 MG Orally every 12 hrs Aug 22, 2016 Sep 01, 2016 1 capsule Effexor XR [facility] [address]-67 75 MG Orally Once a day May 18, 2015 1 capsule with food Procedures Procedure Coding System Code Date Office Visit, Est Pt., Level 3 CPT-4 60650 Aug 22, 2016 Vital Signs Date/Time: Aug 22, 2016 Cardiac Monitoring Heart Rate 84 bpm Weight 212.5 lbs Height 63 in BMI 37.64 Index Blood Pressure Diastolic 66 mmHg Blood Pressure Systolic 110 mmHg Results No Known Results Summary Purpose [employer] Submission
--- OUTSIDE RECORDS SUMMARY | 2018-08-13 09:10 | XMS REPORT ---
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 83063587 Problem Diverticulitis of colon (without mention of hemorrhage) 562.11 Active 198431395 Problem Amenorrhea N91.2 Active 21317864 Problem Abdominal pain R10.9 Active 99804246 Problem Reactive airway disease 493.90 Active 379729184892 Problem Carpal tunnel syndrome 354.0 Active 46416203 Problem Anxiety disorder, unspecified F41.9 Active 775998722 Problem Bipolar 1 disorder, mixed F31.60 Active 71329665 ALLERGIES Substance Reaction Event Type Date Status Codeine nausea and vomiting Drug Allergy Nov, Active SOCIAL HISTORY Never Assessed PLAN OF CARE Activity Details Follow Up prn PCP Josue Reason: VITAL SIGNS Height 63 in 2016-12-05 Weight 203 lbs 2016-12-05 Temperature 98.5 degrees Fahrenheit 2016-12-05 Heart Rate 96 bpm 2016-12-05 Respiratory Rate 20 2016-12-05 Oximetry 100 % 2016-12-05 BMI 35.96 kg/m2 2016-12-05 Blood pressure systolic 100 mmHg 2016-12-05 Blood pressure diastolic 60 mmHg 2016-12-05 MEDICATIONS Medication Instructions Dosage Frequency Start Date End Date Duration Status Effexor XR 75 MG Orally Once a day 1 capsule with food 24h Apr, Active PredniSONE 50 mg Orally Once a day 1 tablet 24h Nov, Nov, 05 days Active Azithromycin 250 MG Orally Once a day 2 tablets on the first day, then 1 tablet daily for 4 days 24h Nov, Nov, 5 day(s) Active RESULTS No Results PROCEDURES Procedure Date Ordered Result Body Site MEASURE BLOOD OXYGEN LEVEL Dec 05, 2016 INFLUENZA ASSAY W/OPTIC Dec 05, 2016 IMMUNIZATIONS No Known Immunizations MEDICAL (GENERAL) HISTORY Type Description Date Medical History depression Medical History Unspecified breast screening Medical History Unspecified breast screening Surgical History section x 3 Surgical History dilatation and curettage Surgical History hernia repair 01/2016 Hospitalization History surgeries
--- OUTSIDE RECORDS SUMMARY | 2018-08-13 09:10 | XMS REPORT ---
Author Author ALTAGRACIA SORIA Organization [employer] Address Unknown Phone Unavailable Care Team Providers Care Flagman Name Role Phone ALTAGRACIA SORIA CP Unavailable Allergies No Known Allergies Problems [...] infections of unspecified site 465.9 Active Problem Diverticulitis of colon (without mention of hemorrhage) 562.11 Active Problem Screening for malignant neoplasm of the cervix V76.2 Active Problem Personal history of tobacco use, presenting hazards to health V15.82 Active Problem Unspecified breast screening V76.10 Active Problem Absence of menstruation 626.0 Active Problem Special screening examination, human papillomavirus [HPV] V73.81 Active Problem 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
--- OUTSIDE RECORDS SUMMARY | 2018-08-13 09:10 | XMS REPORT ---
Author Author LAWSONALEXANDREA Tuttle Organization [facility] Address [address] [place] [address] Care Team Providers Care Record Press Tender Name Role Phone ALEXANDREA LAWSON Unavailable PROBLEMS Type Condition ICD9-CM Code LYH74-SR Code Onset Dates Condition Status SNOMED Code Problem Carpal tunnel syndrome 354.0 Active 00529107 Problem Bipolar 1 disorder, mixed F31.60 Active 49808977 Problem Reactive airway disease 493.90 Active 287133317840 Problem Personal history of tobacco use, presenting hazards to health V15.82 Active 5531874497644 Problem Diverticulitis of colon (without mention of hemorrhage) 562.11 Active 253847616 Problem 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 30476454 Problem Other chronic pain G89.29 Active 74786791 Problem Lumbago with sciatica, right side M54.41 Active 769910101 Problem Abdominal pain R10.9 Active 48499271 Problem Anxiety disorder, unspecified F41.9 Active 402191581 Problem History of gestational diabetes Z86.32 Active 389549375 Problem Amenorrhea N91.2 Active 35911033 ALLERGIES Substance Reaction Event Type Date Status Codeine nausea and vomiting Drug Allergy Jul, Active ENCOUNTERS Encounter Location Date Diagnosis [facility] [id number] [place] [address] 4784 Mar, [facility] [id number] [place] [address]6812- 9017 Jan, Bipolar 1 disorder, mixed F31.60 [facility] [id number] [place] [address] 88385- 9363 Jan, Acute suppurative otitis media of right ear without spontaneous rupture of tympanic membrane, recurrence not specified H66.001 [facility] [address] [place] [address] 09116- 4011 Dec, Lumbago with sciatica, right side M54.41 ; Other chronic pain G89.29 ; Bipolar 1 disorder, mixed F31.60 ; History of gestational diabetes Z86.32 and Family history of diabetes mellitus Z83.3 [place] [address] [address] 20 Sep, 2017 Acute non-recurrent maxillary sinusitis J01.00 and BMI 40.0- 44.9, adult Z68.41 [place] [address] [address]- [address] Jul, [place] [address] [address]- [address] 02 Jul, 2017 Acute bronchitis due to other specified organisms J20.[address] [address]- [address] 11 Feb, 2017 Amenorrhea N91.2 ; Lumbar radiculopathy M54.16 and Positive test Z32.01 [place] [address] [address]- 17[address] 13 Dec, 2016 Tonsillitis J03.[address] [address] 16 Nov, 2016 Wheezing R06.2 and Cough R05 [address] [address]- 6[address] 02 Nov, 2016 Lumbar radiculopathy M54.16 and IT band syndrome, right M76.31 [place] [address] [address]- 7[address] Oct, [place] [address] [address]- 88[address] 05 Oct, 2016 Abdominal pain R10.9 [place] [address] [address]- [address]255 04 Oct, 2016 LLQ abdominal pain R10.32 and Right hip pain M25.551 [place] [address] [place] [id number] [place] [address] 00023- 3156 Aug, Acute suppurative otitis media of left ear without spontaneous rupture of tympanic membrane, recurrence not specified H66.002 [facility] [address] [place] [id number] [place] [address] 21993- 7104 Jun, Anxiety disorder, unspecified F41.9 [facility] [address] [place] [id number] [place] [address] 32655- 3827 Mar, [facility] [address] [place] [id number] [place] [address] 46350- 1367 February, intermediate use of drug Z79.899 and Anxiety disorder, unspecified F41.9 [facility] [address] [place] [id number] [place] [address] 84858- 9477 February, [facility] [address] [place] [id number] [place] [address] 08593- 9611 Jan, [facility] [address] [place] [id number] [place] [address] 51044- 4438 Jan, intermediate teacher use of drug Z79.899 and Bipolar 1 disorder, mixed F31.60 [facility] [address] [place] [id number] [place] [address] 54388- 4365 Jan, [facility] [address] [place] [id number] [place] [address] 42295- 0241 Dec, Hernia of abdominal cavity K46.9 [facility] [address] [place] [id number] [place] [address] 36374- 4270 Dec, [facility] [address] [place] [id number] [place] [address] 70529- 7056 Dec, Abdominal pain R10.9 [facility] [address] [place] [id number] [place] [address] 56245- 1379 Dec, [facility] [address] [place] [id number] [place] [address] 22115- 0039 Nov, [facility] [address] [place] [id number] [id number] Oct, Encounter for dental examination Z01.20 [place] [address] [place] [id number] [place] [address] 65799- 6186 Oct, [place] [address] [place] [address] 66618- 2123 Oct, Bipolar 1 disorder, mixed F31.60 ; Anxiety disorder, unspecified F41.9 and Major depressive disorder, single episode, unspecified F32.9 [place] [address] [place] [id number] [place] [address] 46246- 2494 Oct, Bipolar 1 disorder, mixed F31.60 [place] [address] [place] [address] 20108- 4752 Oct, Anxiety disorder, unspecified F41.9 and Major depressive disorder, single episode, unspecified F32.9 [place] [address] [place] [address] 22629- 8559 Sep, Bipolar 1 disorder, mixed F31.60 ; Anxiety disorder, unspecified F41.9 and Major depressive disorder, single episode, unspecified F32.9 [place] [address] [address] Sep, Bipolar 1 disorder, mixed F31.60 and Anxiety disorder, unspecified F41.9 [place] [address] [address] 100[address] Sep, Bipolar 1 disorder, mixed F31.60 [place] [address] [place] [address] 50307- 6887 Sep, Unspecified mood [affective] disorder F39 and Anxiety disorder, unspecified F41.9 [place] [address] [address] 365[address] Apr, Eustachian tube dysfunction 381.81 ; Reactive airway disease 493.90 and Depression 311 [place] [address] [place] [id number] [address] 14 Jan, 2015 [facility] [address] [id number] [place] [address]- 7006 13 Jan, 2015 [facility] [address] [id number] [place] [address]- 1294 14 Oct, 2014 [facility] [address] [id number] [place] [address]- 1511 14 Oct, 2014 [facility] [address] [id number] [place] [address]- 7621 Sep, [facility] [address] [id number] [place] [address]- 5136 Sep, [facility] [address] [id number] [place] [address]- 5163 Sep, [facility] [address] [id number] [place] [address]- 5663 Sep, [facility] [address] [id number] [place] [address]- 9193 Apr, [facility] [address] [id number] [place] [address]- 0246 Apr, [facility] [address] [id number] [place] [address]- 4184 24 Jan, 2014 [facility] [address] [id number] [place] [address]- 4112 24 Jan, 2014 [facility] [address] [id number] [place] [address]- 8936 Jan, [facility] [place] [facility] [address] [id number] [place] [address]- 2473 Jan, [facility] [place] [facility] [address] [id number] [place] [address]- 9477 Dec, [facility] [place] [facility] [address] [id number] [place] [address]- 7404 Dec, [facility] [place] [facility] [address] [id number] [place] [address]- 3427 Oct, [facility] [place] [facility] [address] [id number] [place] [address]- 6582 Oct, [facility] [place] [facility] [address] [id number] [place] [address]- 1469 Sep, [facility] [place] [facility] [address] [id number] [place] [address]- 6509 Sep, [facility] [address] [id number] [place] [address]- 4041 Sep, [facility] [place] [facility] [address] [id number] [place] [address]- 8850 Sep, [facility] [address] [id number] [place] [address]- 3835 Aug, [facility] [place] [facility] [address] [id number] [place] [address]- 1177 Aug, [facility] [place] [facility] [address] [id number] [place] [address]- 6291 Jul, [facility] [place] [facility] [address] [id number] [place] [address]- 1151 Jul, [facility] [place] [facility] [address] [id number] [place] [address]- 3390 Jul, [facility] [place] [facility] [address] [id number] [address]- 9430 19 Jun, 2013 [facility] [place] [facility] [address] [id number] [place] [address]- 6071 17 Jun, 2013 [facility] [place] [facility] [address] [id number] [place] [address]- 1523 09 Jun, 2013 [facility] [place] [facility] [address] [id number] [address]- 6882 15 Jan, 2013 [facility] [place] [facility] [address] [id number] [address]- 1406 10 Jan, 2013 [facility] [place] [facility] [address] [id number] [place] [address]- 0756 05 Jan, 2013 [facility] [place] [facility] [address] [id number] [place] [address]- 7362 13 Dec, 2012 [facility] [place] [facility] [address] [id number] [place] [address]- 1912 17 Sep, 2012 [facility] [place] [facility] [address] [id number] [place] [address]- 9751 17 Sep, 2012 [facility] [place] [facility] [address] [id number] [place] [address]- 0066 14 Sep, 2012 [facility] [place] [facility] [address] [id number] [place] [address]- 2667 14 Sep, 2012 [facility] [place] [facility] [address] [facility] [id number] [place] [address]- 3345 Sep, [facility] [place] [facility] [address] [id number] [place] [address]- 7705 Aug, [facility] [place] [facility] [address] [id number] [place] [address]- 5345 Aug, [facility] [place] [facility] [address] [facility] [id number] [place] [address]- 2933 Aug, [facility] [place] [facility] [address] [id number] [address]- 3773 Aug, [facility] [place] [facility] [address] [id number][place] [address]- 9887 Aug, [facility] [place] [facility] [address] [id number] [address]- 5179 Aug, [facility] [place] [facility] [address] [id number] [address]- 2038 Aug, [facility] [place] [facility] [address] [id number] [place] [address]- 5878 Jul, [facility] [place] [facility] [address] [address]- 2826 Jul, [facility] [address] [address]- 7329 Jul, [facility] [address] [address]- 7596 May, [facility] [address] [address]- 8651 Mar, [facility] [address] [address]- 1348 Jan, [facility] [id number] [place] [address] 36473- 3653 Nov, [facility] [address] [address]- 2542 Aug, [facility] [address] [place] [id number] [place] [address] 82758- 0869 Aug, [facility] [address] [address]- 1210 Jul, [facility] [address] [address] Jul, [facility] [address] [address]- 6572 Jul, [facility] [address] [address]- 97[address] Aug, IMMUNIZATIONS No Known Immunizations SOCIAL HISTORY Never Assessed REASON FOR VISIT cough congestion, dark green sputum---DBennettRN, 26 weeks , OB Dr Zamora PLAN OF CARE Activity Details Follow Up prn Reason: VITAL SIGNS Height 63 in 2017-07-21 Weight 213 lbs 2017-07-21 Temperature 98.6 degrees Fahrenheit 2017-07-21 Heart Rate 110 bpm 2017-07-21 Respiratory Rate 20 2017-07-21 BMI 37.73 kg/m2 2017-07-21 Blood pressure systolic 102 mmHg 2017-07-21 Blood pressure diastolic 60 mmHg 2017-07-21 MEDICATIONS Medication Instructions Dosage Frequency Start Date End Date Duration Status Azithromycin 250 MG Orally Once a day 2 tablets on the first day, then 1 tablet daily for 4 days 24h Jul, Jul, 5 day(s) Active RESULTS No Results PROCEDURES No Known procedures INSTRUCTIONS MEDICATIONS ADMINISTERED No Known Medications MEDICAL (GENERAL) HISTORY Type Description Date Medical History depression Medical History Unspecified breast screening Medical History Unspecified breast screening Surgical History section x 4 Surgical History dilatation and curettage Surgical History hernia repair 01/2016 Surgical History tubal ligation 12/03/17 Hospitalization History surgeries
--- OUTSIDE RECORDS SUMMARY | 2018-08-13 09:10 | XMS REPORT ---
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 42248830 Problem Diverticulitis of colon (without mention of hemorrhage) 562.11 Active 984902906 Problem Amenorrhea N91.2 Active 06093479 Problem Abdominal pain R10.9 Active 87182972 Problem Reactive airway disease 493.90 Active 270179578838 Problem Carpal tunnel syndrome 354.0 Active 06718146 Problem Anxiety disorder, unspecified F41.9 Active 484195372 Problem Bipolar 1 disorder, mixed F31.60 Active 74993804 ALLERGIES No Known Allergies SOCIAL HISTORY No smoking Hx information available PLAN OF CARE VITAL SIGNS MEDICATIONS No Known Medications RESULTS Name Result Date Reference Range CT Scan : Abdomen & Pelvis w/ Contrast 2016-10-30 PROCEDURES No Known procedures IMMUNIZATIONS No Known Immunizations
--- OUTSIDE RECORDS SUMMARY | 2018-08-13 09:10 | XMS REPORT ---
Author Author ANA PERKINS [employer] Address Unknown Phone Unavailable Care Team Providers Care Shale Planer Operator Helper Name Role Phone ANA PERKINS CP Unavailable Allergies, Adverse Reactions, Alerts Substance Reaction Event Type Codeine Info Not Available Drug Allergy Problems Problem Type Condition Code [...] infections of unspecified site 465.9 Active Assessment Encounter for dental examination Z01.20 Active Problem Diverticulitis of colon (without mention [...] Start Date End Date Status Dosage Vyvanse [facility] [address]-27 30 MG Orally Once a day Nov 07, 2015 1 capsule in the morning Rexulti [facility] [address]-82 3 MG Orally Once a day Oct 24, 2015 1 tablet Adderall XR [facility] [address]-75 20 MG Orally Once a day at 1400 Nov 07, 2015 1 capsule Effexor XR [facility] [address]-01 75 MG Orally Once a day May 18, 2015 1 capsule with food Procedures Procedure Coding System Code Date INTRAORL-PERIAPICAL 1 FILM 56160 CPT-4 D0220 Nov 10, 2015 LTD ORAL EVALUATION - PROBLEM FOCUS CPT-4 D0140 Nov 10, 2015 Vital Signs Date/Time: Nov 10, 2015 Blood Pressure Diastolic 65 mmHg Blood Pressure Systolic 108 mmHg Height 63 in Results No Known Results Summary Purpose eClinicalWorks Submission
--- OUTSIDE RECORDS SUMMARY | 2018-08-13 09:11 | XMS REPORT ---
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 62887210 Problem Diverticulitis of colon (without mention of hemorrhage) 562.11 Active 206659832 Problem Amenorrhea N91.2 Active 55958439 Problem Abdominal pain R10.9 Active 36661513 Problem Reactive airway disease 493.90 Active 160025029043 Problem Carpal tunnel syndrome 354.0 Active 83895727 Problem Anxiety disorder, unspecified F41.9 Active 633983137 Problem Bipolar 1 disorder, mixed F31.60 Active 71901309 ALLERGIES No Information SOCIAL HISTORY Never Assessed PLAN OF CARE Activity Details Follow Up prn Reason: VITAL SIGNS Height 63 in 2016-11-21 Blood pressure systolic 116 mmHg 2016-11-21 Blood pressure diastolic 72 mmHg 2016-11-21 MEDICATIONS No Known Medications RESULTS No Results PROCEDURES No Known procedures IMMUNIZATIONS No Known Immunizations MEDICAL (GENERAL) HISTORY Type Description Date Medical History depression Medical History Unspecified breast screening Medical History Unspecified breast screening Surgical History section x 3 Surgical History dilatation and curettage Surgical History hernia repair 01/2016 Hospitalization History surgeries
--- OUTSIDE RECORDS SUMMARY | 2018-08-13 09:11 | XMS REPORT ---
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 18842844 Problem Diverticulitis of colon (without mention of hemorrhage) 562.11 Active 757276009 Problem Amenorrhea N91.2 Active 21927161 Problem Abdominal pain R10.9 Active 47614152 Problem Reactive airway disease 493.90 Active 393569004571 Problem Carpal tunnel syndrome 354.0 Active 57213262 Problem Anxiety disorder, unspecified F41.9 Active 373385150 Problem Bipolar 1 disorder, mixed F31.60 Active 00624360 ALLERGIES Substance Reaction Event Type Date Status Codeine nausea and vomiting Drug Allergy Oct, Active SOCIAL HISTORY No smoking Hx information available PLAN OF CARE Activity Details Follow Up prn Reason: VITAL SIGNS Height 63 in 2016-10-23 Weight 209.6 lbs 2016-10-23 Temperature 98.2 degrees Fahrenheit 2016-10-23 Heart Rate 80 bpm 2016-10-23 Respiratory Rate 18 2016-10-23 BMI 37.12 kg/m2 2016-10-23 Blood pressure systolic 100 mmHg 2016-10-23 Blood pressure diastolic 64 mmHg 2016-10-23 MEDICATIONS Medication Instructions Dosage Frequency Start Date End Date Duration Status Effexor XR 75 MG Orally Once a day 1 capsule with food 24h Apr, Active RESULTS Name Result Date Reference Range TEST, URINE (IN HOUSE) 2016-10-23 RESULTS negative Lot # [id number] Control + Exp date UA LONG DIP (IN HOUSE) 2016-10-23 Lot # [id number] Exp date Clarity clear Color yellow Odor none GLU negative CEM negative KET negative SG 1.025 BLO 2+ pH 6.0 Protein negative URO 0.2 NIT negative EMIL negative Lot # Exp date Xray : Hip, Right 2 views (IN HOUSE) 2016-10-23 PROCEDURES Procedure Date Ordered Related Diagnosis Body Site URINE TEST Oct 23, 2016 X-RAY EXAM HIP UNI 2-3 VIEWS Oct 23, 2016 Office Visit, Est Pt., Level 3 Oct 23, 2016 URINALYSIS, AUTO, W/O SCOPE Oct 23, 2016 IMMUNIZATIONS No Known Immunizations
--- OUTSIDE RECORDS SUMMARY | 2018-08-13 09:11 | XMS REPORT ---
Author Author ALTAGRACIA SORIA [facility] eClinical[employer] Address Unknown Phone Unavailable Care Team Providers Care Gray Tender Name Role Phone ALTAGRACIA SORIA CP Unavailable Allergies, Adverse Reactions, Alerts Substance [...] colon (without mention of hemorrhage) 562.11 Active Assessment Major depressive disorder, single episode, unspecified F32.9 Active Assessment Anxiety disorder, unspecified F41.9 Active Problem Screening for malignant neoplasm of [...] Start Date End Date Status Dosage Vyvanse [facility] [address]-28 30 MG Orally Once a day Nov 07, 2015 1 capsule in the morning Rexulti [facility] [address]-01 3 MG Orally Once a day Oct 24, 2015 1 tablet Effexor XR [facility] [address]-26 75 MG Orally Once a day May 18, 2015 1 capsule with food Adderall XR [facility] [address]-12 20 MG Orally Once a day at 1400 Nov 07, 2015 1 capsule Rexulti [facility] [address]-51 0.5 MG Orally Once a day Oct 16, 2015 1 tablet Procedures Procedure Coding System Code Date MH Office Visit, Est Pt., Level 4 CPT-4 06475 Nov 07, 2015 Vital Signs Date/Time: Nov 07, 2015 Cardiac Monitoring Heart Rate 92 bpm Weight 218.9 lbs Height 63 in BMI 38.77 Index Blood Pressure Diastolic 64 mmHg Blood Pressure Systolic 110 mmHg Results No Known Results Summary Purpose eClinicalWorks Submission
--- OUTSIDE RECORDS SUMMARY | 2018-08-13 09:11 | XMS REPORT ---
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 79424341 Problem Diverticulitis of colon (without mention of hemorrhage) 562.11 Active 685573067 Problem Amenorrhea N91.2 Active 60469477 Problem Abdominal pain R10.9 Active 33587807 Problem Reactive airway disease 493.90 Active 665063415882 Problem Carpal tunnel syndrome 354.0 Active 60330233 Problem Anxiety disorder, unspecified F41.9 Active 276047313 Problem Bipolar 1 disorder, mixed F31.60 Active 82334061 ALLERGIES Substance Reaction Event Type Date Status Codeine nausea and vomiting Drug Allergy Dec, Active SOCIAL HISTORY Never Assessed PLAN OF CARE Activity Details Follow Up prn Reason: VITAL SIGNS Height 63 in 2016-12-30 Weight 209 lbs 2016-12-30 Temperature 98.6 degrees Fahrenheit 2016-12-30 Heart Rate 82 bpm 2016-12-30 Respiratory Rate 18 2016-12-30 BMI 37.02 kg/m2 2016-12-30 Blood pressure systolic 98 mmHg 2016-12-30 Blood pressure diastolic 56 mmHg 2016-12-30 MEDICATIONS Medication Instructions Dosage Frequency Start Date End Date Duration Status Amoxicillin 500 mg Orally 3 times a day 1 capsule 8h Dec, Dec, 10 day(s) Active RESULTS No Results PROCEDURES Procedure Date Ordered Result Body Site STREP A ASSAY W/OPTIC December 30, 2016 IMMUNIZATIONS No Known Immunizations MEDICAL (GENERAL) HISTORY Type Description Date Medical History depression Medical History Unspecified breast screening Medical History Unspecified breast screening Surgical History section x 3 Surgical History dilatation and curettage Surgical History hernia repair 01/2016 Hospitalization History surgeries
--- OUTSIDE RECORDS SUMMARY | 2018-08-13 09:11 | XMS REPORT ---
Author Author MED LAZO Organization eClinical[employer] Address Unknown Phone Unavailable Care Team Providers Care Waste Water Plant Operator Name Role Phone MED LAZO CP Unavailable Allergies No Known Allergies Problems [...] Problem Unspecified breast screening V76.10 Active Problem Personal history of tobacco use, [...] Instructions Start Date End Date Status Dosage Adderall XR [facility] [id number] 20 MG TAKE ONE CAPSULE BY MOUTH ONCE DAILY AT 2:00PM Results No Known Results Summary Purpose eClinicalWorks Submission
--- OUTSIDE RECORDS SUMMARY | 2018-08-13 09:11 | XMS REPORT ---
Author Author ALTAGRACIA SORIA [facility] eClinicalWorks Address Unknown Phone Unavailable Care Team Providers Care Space Operations Name Role Phone ALTAGRACIA SORIA CP Unavailable [...] infections of unspecified site 465.9 Active Assessment Anxiety disorder, unspecified F41.9 Active Problem Diverticulitis of colon (without mention of hemorrhage) 562.11 Active Assessment Major depressive disorder, single episode, unspecified F32.9 Active Problem Screening for malignant neoplasm of [...] Instructions Start Date End Date Status Dosage Effexor XR [facility] [address]-02 75 MG Orally Once a day May 18, 2015 1 capsule with food Loxapine Succinate [facility] [address]-01 5 MG Orally Twice a day Sep 26, 2015 1 capsules Abilify [facility] [address]-09 15 MG Orally Once a day May 18, 2015 1 tablet Rexulti [facility] [address]-14 3 MG Orally Once a day Oct 24, 2015 1 tablet Rexulti [facility] [address]-35 0.5 MG Orally Once a day Oct 16, 2015 1 tablet Procedures Procedure Coding System Code Date Office Visit, Est Pt., Level 3 CPT-4 95523 Oct 24, 2015 Vital Signs Date/Time: Oct 24, 2015 Cardiac Monitoring Heart Rate 96 bpm Weight 212.6 lbs Height 63 in BMI 37.66 Index Blood Pressure Diastolic 60 mmHg Blood Pressure Systolic 100 mmHg Results No Known Results Summary Purpose eClinicalWorks Submission
--- OUTSIDE RECORDS SUMMARY | 2018-08-13 09:11 | XMS REPORT ---
Author Author SAMIR BRANDON [facility] eClinicalWorks Address Unknown Phone Unavailable Care Team Providers Care Treasury Associate Name Role Phone SAMIR BRANDON CP Unavailable Allergies, Adverse Reactions, Alerts Substance [...] Problem Unspecified breast screening V76.10 Active Assessment Bipolar 1 disorder, mixed F31.60 Active Problem Personal history of tobacco use, [...] Instructions Start Date End Date Status Dosage Loxapine Succinate [facility] [address]-63 5 MG Orally Twice a day Sep 26, 2015 1 capsules Effexor XR [facility] [address]-96 75 MG Orally Once a day May 18, 2015 1 capsule with food Procedures Procedure Coding System Code Date Office Visit, Est Pt., Level 3 CPT-4 69411 Sep 26, 2015 Vital Signs Date/Time: Sep 26, 2015 Temperature 97.8 F Weight 210.2 lbs Height 63 in BMI 37.23 Index Blood Pressure Diastolic 60 mmHg Blood Pressure Systolic 110 mmHg Cardiac Monitoring Heart Rate 88 bpm Results No Known Results Summary Purpose eClinicalWorks Submission
--- OUTSIDE RECORDS SUMMARY | 2018-08-13 09:11 | XMS REPORT ---
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 38117974 Problem Diverticulitis of colon (without mention of hemorrhage) 562.11 Active 860176848 Problem Amenorrhea N91.2 Active 10053316 Problem Abdominal pain R10.9 Active 61000077 Problem Reactive airway disease 493.90 Active 863088268144 Problem Carpal tunnel syndrome 354.0 Active 76480762 Problem Anxiety disorder, unspecified F41.9 Active 901668672 Problem Bipolar 1 disorder, mixed F31.60 Active 72187787 ALLERGIES Substance Reaction Event Type Date Status Codeine nausea and vomiting Drug Allergy February, Active SOCIAL HISTORY Never Assessed PLAN OF CARE Activity Details Follow Up prn Reason: VITAL SIGNS Height 63 in 2017-02-27 Weight 207.6 lbs 2017-02-27 Temperature 98.4 degrees Fahrenheit 2017-02-27 Heart Rate 78 bpm 2017-02-27 Respiratory Rate 18 2017-02-27 BMI 36.77 kg/m2 2017-02-27 Blood pressure systolic 100 mmHg 2017-02-27 Blood pressure diastolic 70 mmHg 2017-02-27 MEDICATIONS Unknown Medications RESULTS Name Result Date Reference Range TEST, URINE (IN HOUSE) 2017-02-27 RESULTS POSITIVE Lot # [id number] Control + Exp date 04/2018 PROCEDURES Procedure Date Ordered Result Body Site URINE TEST February 27, 2017 IMMUNIZATIONS No Known Immunizations MEDICAL (GENERAL) HISTORY Type Description Date Medical History depression Medical History Unspecified breast screening Medical History Unspecified breast screening Surgical History section x 3 Surgical History dilatation and curettage Surgical History hernia repair 01/2016 Hospitalization History surgeries
--- OUTSIDE RECORDS SUMMARY | 2018-08-13 09:12 | XMS REPORT ---
Author Author SAMIR BRANDON Organization [facility] Address [address] [place] [address] Care Team Providers Care Assistant Manager Trainee Name Role Phone SAMIR BRANDON Unavailable PROBLEMS Type Condition ICD9-CM Code PCM45-KP Code Onset Dates Condition Status SNOMED Code Problem Carpal tunnel syndrome 354.0 Active 76854471 Problem Bipolar 1 disorder, mixed F31.60 Active 85370128 Problem Reactive airway disease 493.90 Active 847561730401 Problem Personal history of tobacco use, presenting hazards to health V15.82 Active 6285971350121 Problem Diverticulitis of colon (without mention of hemorrhage) 562.11 Active 599130542 Problem 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 96499258 Problem Other chronic pain G89.29 Active 09488183 Problem Lumbago with sciatica, right side M54.41 Active 617236526 Problem Abdominal pain R10.9 Active 09601509 Problem Anxiety disorder, unspecified F41.9 Active 155686640 Problem History of gestational diabetes Z86.32 Active 697363516 Problem Amenorrhea N91.2 Active 24382778 ALLERGIES No Information ENCOUNTERS Encounter Location Date Diagnosis [place] [address] [place] [address] Mar, [facility] [id number] [place] [address]- 97[address] Jan, Bipolar 1 disorder, mixed F31.60 [facility] [id number] [place] [address]- [address] Jan, Acute suppurative otitis media of right ear without spontaneous rupture of tympanic membrane, recurrence not specified H66.001 [place] [address] [place] [address]- 4[address] Dec, Lumbago with sciatica, right side M54.41 ; Other chronic pain G89.29 ; Bipolar 1 disorder, mixed F31.60 ; History of gestational diabetes Z86.32 and Family history of diabetes mellitus Z83.3 [place] [address] [address] Sep, Acute non-recurrent maxillary sinusitis J01.00 and BMI 40.0- 44.9, adult Z68.41 [place] [address] [address] Jul, [place] [address] [address] 02 Jul, 2017 Acute bronchitis due to other specified organisms J20.8 [place] [address] [address] February, Amenorrhea N91.2 ; Lumbar radiculopathy M54.16 and Positive test Z32.01 [place] [address] [address] Dec, Tonsillitis J03.[address] [address] 16 Nov, 2016 Wheezing R06.2 and Cough R05 [address] [address]- 6[address] 02 Nov, 2016 Lumbar radiculopathy M54.16 and IT band syndrome, right M76.31 [place] [address] [address] Oct, [address] [address] Oct, Abdominal pain R10.[address] [address]- [address] Oct, LLQ abdominal pain R10.32 and Right hip pain M25.[address] [address] Aug, Acute suppurative otitis media of left ear without spontaneous rupture of tympanic membrane, recurrence not specified H66.002 [facility] [id number] [place] [address] 8[address]33- 3457 Jun, Anxiety disorder, unspecified F41.9 [facility] [address] [address] Mar, [facility] [address] [address] February, 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 and Anxiety disorder, unspecified F41.9 [facility] [address] [address] February, [facility] [address] [address]- 2007 Jan, [facility] [address] [address]- [address] Jan, 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 and Bipolar 1 disorder, mixed F31.60 [facility] [address] 9[address]- [address]60 Jan, [facility] [id number] [place] [address] 78404- 1318 Dec, Hernia of abdominal cavity K46.9 [facility] [address] [address]- [address] Dec, [facility] [id number] [place] [address] 73999- 7269 Dec, Abdominal pain R10.9 [facility] [address] 18[address]- 87[address] Dec, [facility] [id number] [place] [address] 75613- 7768 Nov, [facility] [address] [place] [address] Oct, Encounter for dental examination Z01.20 [place] [address] [place] [id number] [place] [address] 98839- 8855 Oct, [place] [address] [place] [id number] [place] [address] 01521- 9917 Oct, Bipolar 1 disorder, mixed F31.60 ; Anxiety disorder, unspecified F41.9 and Major depressive disorder, single episode, unspecified F32.9 [place] [address] [place] [id number] [place] [address] 95357- 9685 Oct, Bipolar 1 disorder, mixed F31.60 [place] [address] [place] [id number] [place] [address] 53549- 1464 Oct, Anxiety disorder, unspecified F41.9 and Major depressive disorder, single episode, unspecified F32.9 [place] [address] [place] [id number] [place] [address] 13498- 4695 Sep, Bipolar 1 disorder, mixed F31.60 ; Anxiety disorder, unspecified F41.9 and Major depressive disorder, single episode, unspecified F32.9 [place] [address] [place] [address] 49018- 6591 Sep, Bipolar 1 disorder, mixed F31.60 and Anxiety disorder, unspecified F41.9 [place] [address] [place] [id number] [place] [address] 47124- 7626 Sep, Bipolar 1 disorder, mixed F31.60 [place] [address] [place] [id number] [place] [address] 76027- 9098 Sep, Unspecified mood [affective] disorder F39 and Anxiety disorder, unspecified F41.9 [place] [address] [place] [id number] [place] [address] 35159- 2776 Apr, Eustachian tube dysfunction 381.81 ; Reactive airway disease 493.90 and Depression [address] [place] [address] [place] [id number] [place] [address] 49639- [address]68 14 Jan, 2015 [facility] [place] [facility] [address] [id number] [place] [address] 2869 Jan, [facility] [place] [facility] [address] [id number] [place] [address]- 0052 14 Oct, 2014 [facility] [place] [facility] [address] [id number] [place] [address]- 7218 Oct, [facility] [place] [facility] [address] [id number] [place] [address]- 8619 Sep, [facility] [place] [facility] [address] [id number] [place] [address]- 0665 Sep, [facility] [place] [facility] [address] [id number] [place] [address]- 6857 Sep, [facility] [place] [facility] [address] [id number] [place] [address]- 2564 Sep, [facility] [place] [facility] [address] [id number] [place] [address]- 5777 Apr, [facility] [place] [facility] [address] [id number] [place] [address]- 4908 Apr, [facility] [place] [facility] [address] [id number] [place] [address]- 1180 24 Jan, 2014 [facility] [place] [facility] [address] [id number] [place] [address]- 2632 24 Jan, 2014 [facility] [place] [facility] [address] [id number] [place] [address]- 8580 Jan, [facility] [place] [facility] [address] [id number] [place] [address]- 7796 Jan, [facility] [place] [facility] [address] [id number] [place] [address]- 4659 Dec, [facility] [place] [facility] [address] [id number] [place] [address]- 3111 Dec, [facility] [place] [facility] [address] [id number] [place] [address]- 4809 Oct, [facility] [address] [id number] [place] [address]- 3423 Oct, [facility] [address] [id number] [place] [address]- 1238 Sep, [facility] [address] [id number] [place] [address]- 0153 Sep, [facility] [address] [id number] [place] [address]- 0679 Sep, [facility] [address] [id number] [place] [address]- 8486 Sep, [facility] [address] [id number] [place] [address]- 8681 Aug, [facility] [address] [id number] [place] [address]- 4854 Aug, [facility] [address] [id number] [place] [address]- 6228 Jul, [facility] [address] [id number] [place] [address]- 1590 Jul, [facility] [address] [id number] [place] [address]- 4848 Jul, [facility] [address] [id number] [place] [address]- 7240 19 Jun, 2013 [facility] [address] [id number] [place] [address]- 5635 17 Jun, 2013 [facility] [address] [id number] [place] [address]- 4921 09 Jun, 2013 [facility] [place] [facility] [address] [id number] [place] [address]- 0207 15 Jan, 2013 [facility] [address] [id number] [place] [address]- 6308 10 Jan, 2013 [facility] [place] [facility] [address] [id number] [place] [address]- 4556 05 Jan, 2013 [facility] [place] [facility] [address] [id number] [place] [address]- 1712 13 Dec, 2012 [facility] [place] [facility] [address] [id number] [place] [address]- 4260 17 Sep, 2012 [facility] [place] [facility] [address] [id number] [place] [address]- 1557 17 Sep, 2012 [facility] [place] [facility] [address] [id number] [place] [address]- 2423 14 Sep, 2012 [facility] [place] [facility] [address] [id number] [place] [address]- 1028 14 Sep, 2012 [facility] [place] [facility] [address] [id number] [place] [address]- 1153 Sep, [facility] [place] [facility] [address] [id number] [place] [address]- 0256 Aug, [facility] [place] [facility] [address] [id number] [place] [address]- 1252 Aug, [facility] [place] [facility] [address] [id number] [place] [address]- 3165 Aug, [facility] [place] [facility] [address] [facility] [id number] [place] [address]- 9467 Aug, [facility] [place] [facility] [address] [id number], [place] [address]- 8783 Aug, [facility] [place] [facility] [address] [id number] [place] [address]- 2091 Aug, [facility] [place] [facility] [address] [id number] [place] [address]- 4878 Aug, [facility] [place] [facility] [address] [id number] [place] [address]- 1753 Jul, [facility] [place] [facility] [address] [id number], [place] [address]- 2356 Jul, [facility] [address] [address]- [address] Jul, [facility] [address] [address]- [address] May, [facility] [address] [address]- [address] Mar, [facility] [address] [address]- 5297 Jan, [facility] [address] [place] [address]- [address] Nov, [facility] [address] [place] [address] 6[address]19- 0730 Aug, [facility] [address] [address]- 68[address] Aug, [facility] [address] [place] [address]- 6004 Jul, [facility] [address] [address]- 7936 Jul, [facility] [address] [address] Jul, [facility] [id number] [address] Aug, IMMUNIZATIONS No Known Immunizations SOCIAL HISTORY Never Assessed REASON FOR VISIT Outside Provider Scripts PLAN OF CARE VITAL SIGNS MEDICATIONS Unknown Medications RESULTS No Results PROCEDURES No Known procedures INSTRUCTIONS MEDICATIONS ADMINISTERED No Known Medications MEDICAL (GENERAL) HISTORY Type Description Date Medical History depression Medical History Unspecified breast screening Medical History Unspecified breast screening Surgical History section x 4 Surgical History dilatation and curettage Surgical History hernia repair 01/2016 Surgical History tubal ligation 12/03/17 Hospitalization History surgeries
--- OUTSIDE RECORDS SUMMARY | 2018-08-13 09:12 | XMS REPORT ---
Author Author ALTAGRACIA SORIA [facility] eClinicalWorks Address Unknown Phone Unavailable Care Team Providers Care Infertility Nurse Name Role Phone ALTAGRACIA SORIA CP Unavailable Allergies, Adverse Reactions, Alerts Substance Reaction Event Type Codeine Info Not Available Drug Allergy Problems Problem Type Condition Code Onset Dates Condition Status Problem Lumbago 724.2 Active Problem General counseling for prescription of oral contraceptives V25.01 Active Problem Carpal tunnel syndrome 354.0 Active Problem Anxiety disorder, unspecified F41.9 Active Assessment Major depressive disorder, single episode, unspecified F32.9 Active Problem Bipolar 1 disorder, mixed F31.60 [...] Assessment Anxiety disorder, unspecified F41.9 Active Assessment Bipolar 1 disorder, mixed F31.60 [...] Date End Date Status Dosage Loxapine Succinate [facility] [address]-44 5 MG Orally Twice a day Sep 26, 2015 1 capsules Rexulti [facility] [address]-36 0.5 MG Orally Once a day Oct 16, 2015 1 tablet Effexor XR [facility] [address]-73 75 MG Orally Once a day May 18, 2015 1 capsule with food Procedures Procedure Coding System Code Date Psych diagnostic evaluation w/medical services, established patient CPT-4 17084 Oct 16, 2015 Vital Signs Date/Time: Oct 16, 2015 Cardiac Monitoring Heart Rate 82 bpm Weight 210 lbs Height 63 in BMI 37.20 Index Blood Pressure Diastolic 70 mmHg Blood Pressure Systolic 118 mmHg Results No Known Results Summary Purpose eClinicalWorks Submission
--- OUTSIDE RECORDS SUMMARY | 2018-08-13 09:14 | XMS REPORT | Continuity of Care Document ---
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 07/07/2013 Q0091 PAP SMEAR OBTAIN SMEAR 07/07/2013 20810 ROUTINE VENIPUNCTURE 10/04/2013 32531 URINE TEST (IN- HOUSE) 10/04/2013 53928 HCG QUALITATIVE 10/04/2013 Obstetric Dorian Sierra 07/19/2014 74.1 LOW CERVICAL 11/26/2014 99.77 APPL/ADMIN OF AN ADHESION BARRIER SUBSTA 11/26/2014 [id number] EXTRACTION OF POC, LOW CERVICAL, OPEN AP 10/10/2017 Results Test Result Range Capillary blood glucose measurement by glucometer (mass/volume) - 09/24/17 16: 38 Capillary blood glucose measurement by glucometer (mass/volume) 80 mg/dL 70-110 Complete urinalysis with reflex to culture - 10/09/17 20:10 Urine color determination YELLOW NRG Urine clarity determination CLEAR NRG Urine pH measurement by test strip 7 5-9 Specific gravity of urine by test strip 1.010 1.016- 1.022 Urine protein assay by test strip, semi-quantitative NEGATIVE NEGATIVE Urine glucose detection by automated test strip NEGATIVE NEGATIVE Erythrocytes detection in urine sediment by light microscopy NEGATIVE NEGATIVE Urine ketones detection by automated test strip NEGATIVE NEGATIVE Urine nitrite detection by test strip NEGATIVE NEGATIVE Urine total bilirubin detection by test strip NEGATIVE NEGATIVE Urine urobilinogen measurement by automated test strip (mass/volume) NORMAL NORMAL Urine leukocyte esterase detection by dipstick 1+ NEGATIVE Automated urine sediment erythrocyte count by microscopy (number/high power field) NONE NRG Automated urine sediment leukocyte count by microscopy (number/high power field ) [HPF] NRG Bacteria detection in urine sediment by light microscopy TRACE NRG Squamous epithelial cells detection in urine sediment by light microscopy 10-25 NRG Crystals detection in urine sediment by light microscopy NONE NRG Casts detection in urine sediment by light microscopy NONE NRG Mucus detection in urine sediment by light microscopy NEGATIVE NRG Complete urinalysis with reflex to culture NO NRG Bacterial urine culture - 10/09/17 20:10 Bacterial urine culture [id number] NRG COLONY COUNT <10,000 NRG FTX;REPORTABLE PLUS, NRG FREE TEXT ENTRY 2 MIXED GRAM POSITIVES <10,000/ML NRG Capillary blood glucose measurement by glucometer (mass/volume) - 10/09/17 20: 44 Capillary blood glucose measurement by glucometer (mass/volume) 95 mg/dL 70-110 Complete blood count (CBC) with automated white blood cell (WBC) differential - 10/09/17 21:15 Blood leukocytes automated count (number/volume) 18.9 10*3/uL 4.3-11.0 Blood erythrocytes automated count (number/volume) 3.87 10*6/uL 4.35-5.85 Venous blood hemoglobin measurement (mass/volume) 11.8 g/dL 11.5-16.0 Blood hematocrit (volume fraction) 34 % 35-52 Automated erythrocyte mean corpuscular volume 88 [foz_us] 80-99 Automated erythrocyte mean corpuscular hemoglobin (mass per erythrocyte) 31 pg 25-34 Automated erythrocyte mean corpuscular hemoglobin concentration measurement ( mass/volume) 35 g/dL 32-36 Automated erythrocyte distribution width ratio 13.3 % 10.0-14.5 Automated blood platelet count (count/volume) 154 10*3/uL 130-400 Automated blood platelet mean volume measurement 13.3 [foz_us] 7.4-10.4 Automated blood neutrophils/100 leukocytes 75 % 42-75 Automated blood lymphocytes/100 leukocytes 20 % 12-44 Blood monocytes/100 leukocytes 5 % 0-12 Automated blood eosinophils/100 leukocytes 1 % 0-10 Automated blood basophils/100 leukocytes 0 % 0-10 Blood neutrophils automated count (number/volume) 14.1 10*3 1.8-7.8 Blood lymphocytes automated count (number/volume) 3.7 10*3 1.0-4.0 Blood monocytes automated count (number/volume) 0.9 10*3 0.0-1.0 Automated eosinophil count 0.1 10*3/uL 0.0-0.3 Automated blood basophil count (count/volume) 0.0 10*3/uL 0.0-0.1 Blood type T Indirect antibody screen panel - 10/09/17 21:15 ABO+Rh group AN NRG Transfusion band number [id number] NRG Blood group antibody screen NEGATIVE NRG Blood manual differential performed detection - 10/09/17 21:15 Blood monocytes/100 leukocytes 2 % NRG Manual blood segmented neutrophils/100 leukocytes 76 % NRG Blood band neutrophils/100 leukocytes 0 % NRG Manual blood lymphocytes/100 leukocytes 20 % NRG Manual eosinophils/100 leukocytes in nose 1 % NRG Manual blood basophils/100 leukocytes 1 % NRG Blood erythrocyte morphology finding identification NORMAL NR Capillary blood glucose measurement by glucometer (mass/volume) - 10/10/17 05: 05 Capillary blood glucose measurement by glucometer (mass/volume) 135 mg/dL 70-110 Methicillin resistant Staphylococcus aureus (MRSA) screening culture - 06:15 Methicillin resistant Staphylococcus aureus (MRSA) screening culture NEG NRG Complete blood count (CBC) with automated white blood cell (WBC) differential - 10/11/17 07:18 Blood leukocytes automated count (number/volume) 13.4 10*3/uL 4.3-11.0 Blood erythrocytes automated count (number/volume) 3.48 10*6/uL 4.35-5.85 Venous blood hemoglobin measurement (mass/volume) 10.6 g/dL 11.5-16.0 Blood hematocrit (volume fraction) 31 % 35-52 Automated erythrocyte mean corpuscular volume 89 [foz_us] 80-99 Automated erythrocyte mean corpuscular hemoglobin (mass per erythrocyte) 31 pg 25-34 Automated erythrocyte mean corpuscular hemoglobin concentration measurement ( mass/volume) 34 g/dL 32-36 Automated erythrocyte distribution width ratio 13.5 % 10.0-14.5 Automated blood platelet count (count/volume) 142 10*3/uL 130-400 Automated blood platelet mean volume measurement 12.9 [foz_us] 7.4-10.4 Automated blood neutrophils/100 leukocytes 75 % 42-75 Automated blood lymphocytes/100 leukocytes 19 % 12-44 Blood monocytes/100 leukocytes 5 % 0-12 Automated blood eosinophils/100 leukocytes 1 % 0-10 Automated blood basophils/100 leukocytes 0 % 0-10 Blood neutrophils automated count (number/volume) 10.1 10*3 1.8-7.8 Blood lymphocytes automated count (number/volume) 2.5 10*3 1.0-4.0 Blood monocytes automated count (number/volume) 0.7 10*3 0.0-1.0 Automated eosinophil count 0.1 10*3/uL 0.0-0.3 Automated blood basophil count (count/volume) 0.0 10*3/uL 0.0-0.1 RH IMMUNE GLOBULIN RHOPHYLAC - 10/11/17 07:18 RH IMMUNE GLOBULIN RHOPHYLAC PRSMD TRFSD 10/11/17 1118 NRG cell screen - 10/11/17 07:18 SCREEN LOT NUMBER [id number] [facility] [id number] 1 300ug NRG Erythrocytes./1000 erythrocytes 10/24/17 NRG cell screen [id number] NRG cell screen 05/22/19 NRG Lot number [id number] [facility] Complete blood count (CBC) with automated white blood cell (WBC) differential - 04/20/18 09:15 Blood leukocytes automated count (number/volume) 11.7 10*3/uL 4.3-11.0 Blood erythrocytes automated count (number/volume) 4.81 10*6/uL 4.35-5.85 Venous blood hemoglobin measurement (mass/volume) 13.7 g/dL 11.5-16.0 Blood hematocrit (volume fraction) 40 % 35-52 Automated erythrocyte mean corpuscular volume 83 [foz_us] 80-99 Automated erythrocyte mean corpuscular hemoglobin (mass per erythrocyte) 29 pg 25-34 Automated erythrocyte mean corpuscular hemoglobin concentration measurement ( mass/volume) 34 g/dL 32-36 Automated erythrocyte distribution width ratio 15.3 % 10.0-14.5 Automated blood platelet count (count/volume) 180 10*3/uL 130-400 Automated blood platelet mean volume measurement 11.9 [foz_us] 7.4-10.4 Automated blood neutrophils/100 leukocytes 69 % 42-75 Automated blood lymphocytes/100 leukocytes 25 % 12-44 Blood monocytes/100 leukocytes 5 % 0-12 Automated blood eosinophils/100 leukocytes 1 % 0-10 Automated blood basophils/100 leukocytes 0 % 0-10 Blood neutrophils automated count (number/volume) 8.1 10*3 1.8-7.8 Blood lymphocytes automated count (number/volume) 2.9 10*3 1.0-4.0 Blood monocytes automated count (number/volume) 0.5 10*3 0.0-1.0 Automated eosinophil count 0.1 10*3/uL 0.0-0.3 Automated blood basophil count (count/volume) 0.0 10*3/uL 0.0-0.1 Comprehensive metabolic panel - 04/20/18 09:15 Serum or plasma sodium measurement (moles/volume) 140 mmol/L 135-145 Serum or plasma potassium measurement (moles/volume) 3.9 mmol/L 3.6-5.0 Serum or plasma chloride measurement (moles/volume) 112 mmol/L 98-107 Carbon dioxide 20 mmol/L 21-32 Serum or plasma anion gap determination (moles/volume) 8 mmol/L 5-14 Serum or plasma urea nitrogen measurement (mass/volume) 6 mg/dL 7-18 Serum or plasma creatinine measurement (mass/volume) 0.72 mg/dL 0.60-1.30 Serum or plasma urea nitrogen/creatinine mass ratio 8 NRG Serum or plasma creatinine measurement with calculation of estimated glomerular filtration rate > NRG Serum or plasma glucose measurement (mass/volume) 109 mg/dL 70-105 Serum or plasma calcium measurement (mass/volume) 9.1 mg/dL 8.5-10.1 Serum or plasma total bilirubin measurement (mass/volume) 0.2 mg/dL 0.1-1.0 Serum or plasma alkaline phosphatase measurement (enzymatic activity/volume) 83 U/L 40-136 Serum or plasma aspartate aminotransferase measurement (enzymatic activity/ volume) 21 U/L 5-34 Serum or plasma alanine aminotransferase measurement (enzymatic activity/volume ) 22 U/L 0-55 Serum or plasma protein measurement (mass/volume) 6.6 g/dL 6.4-8.2 Serum or plasma albumin measurement (mass/volume) 4.0 g/dL 3.2-4.5 Serum or plasma C reactive protein measurement (mass/volume) - 04/20/18 09:15 Serum or plasma C reactive protein measurement (mass/volume) 0.33 mg /dL 0.00-0.50 Encounters ACCT No. Visit Date/Time Discharge Status Pt. Type Provider Facility Loc./Unit Complaint [id number] 07/19/2014 12:45:00 07/19/2014 23:59:59 [facility] Outpatient KAMILAH LICONA DDS [id number] 04/28/2014 10:01:00 04/28/2014 23:59:59 [facility] Outpatient SAMIR BRANDON APRN [id number] 10/04/2013 12:33:00 10/04/2013 23:59:59 [facility] Outpatient SAMIR BRANDON APRN [id number] 09/07/2013 10:17:00 09/07/2013 23:59:59 [facility] Outpatient SAMIR BRANDON APRN [id number] 07/29/2013 10:26:00 07/29/2013 23:59:59 [facility] Outpatient SAMIR BRANDON APRN [id number] 07/06/2013 10:16:00 07/06/2013 23:59:59 CLS Outpatient SANDY STOKES APRN [id number] 01/22/2013 15:46:00 01/22/2013 23:59:59 CLS Outpatient [id number] 10/05/2012 15:59:00 10/05/2012 23:59:59 CLS Outpatient DREW MONDRAGON APRN [id number] 08/27/2012 18:02:00 08/27/2012 23:59:59 CLS Outpatient SAMIR BRANDON APRN [id number] 06/28/2013 11:12:00 Document Registration [id number] 01/27/2013 08:25:00 Document Registration [id number] 12/01/2014 06:08:00 ACT Document Registration [id number] 04/20/2018 08:27:00 04/20/2018 11:39:00 DIS Outpatient JORDI BLANCO MD [facility] ER MIGRAINE [id number] 10/15/2017 07:30:00 10/15/2017 23:59:59 CLS Preadmit DORIAN SIERRA DO , GESTATIONAL DIABETES [id number] 10/09/2017 21:52:00 10/12/2017 16:50:00 DIS Inpatient DORIAN SIERRA DO [facility] LDRP REPEAT [id number] 10/09/2017 01:05:00 10/09/2017 13:07:00 DIS Outpatient DORIAN SIERRA DO [facility] PREOP REPEAT , GESTATIONAL DIABETES [id number] 09/25/2017 14:58:00 09/25/2017 23:59:59 CLS Outpatient DORIAN SIERRA DO [facility] RAD Q24.415 GESTATIONAL DIABETES MELLITUS [id number] 09/24/2017 15:08:00 09/24/2017 19:32:00 DIS Outpatient NATHANIEL BEAL MD [facility] WSo CONTRACTIONS [id number] 09/24/2017 15:15:00 09/24/2017 15:15:00 CAN Preadmit NATHANIEL BEAL MD [facility] WSo PELVIC PRESSURE, CONTRACTIONS [id number] 07/09/2017 12:01:00 07/09/2017 23:59:59 CLS Outpatient DORIAN SIERRA DO [facility] RAD Z33.1 [id number] 07/02/2017 18:52:00 07/02/2017 19:40:00 DIS Outpatient NATHANIEL BEAL MD [facility] WSo BACK PAIN AND LOWER ABD PAIN [id number] 06/09/2017 09:46:00 06/09/2017 23:59:59 CLS Outpatient DORIAN SIERRA DO [facility] RAD SURVEY [id number] 12/19/2016 13:30:00 01/14/2017 14:31:00 DIS Outpatient ALESSIO MANCILLA [employer] DIRECT[employer] [facility] REHAB LUMAR RADICULOPATHY [id number] 10/30/2016 11:42:00 10/30/2016 23:59:59 CLS Outpatient SAMIR BRANDON NEWS LIBRARY DIRECTOR [facility] RAD LLQ ABDOMINAL PAIN [id number] 02/22/2016 10:08:00 02/22/2016 12:40:00 DIS Emergency CHIRAG DAMIAN [facility] ER LEFT FLANK PAIN [id number] 02/15/2016 07:20:00 02/15/2016 15:30:00 DIS Outpatient GIRMA RODRIGUEZ DO [facility] SDC UMBILICAL HERNIA [id number] 02/08/2016 13:57:00 02/08/2016 15:10:00 DIS Outpatient GIRMA RODRIGUEZ DO [facility] PREOP UMBILICAL HERNIA [id number] 01/02/2016 12:21:00 01/02/2016 23:59:59 CLS Outpatient ANKITA LINDA [employer]RARY DIRECTOR [facility] RAD ABDOMINAL PAIN [id number] 08/18/2015 17:24:00 08/18/2015 18:32:00 DIS Emergency BONNIE PANDEY APRN [facility] ER FALL,HIP PAIN [id number] 12/01/2014 06:07:00 12/01/2014 23:59:59 CLS Outpatient DORIAN SIERRA DO [facility] PREOP PREVIOUS SECTION [id number] 11/26/2014 18:36:00 11/28/2014 10:50:00 DIS Inpatient EMIGDIO MARTINEZ, NATHANIEL Palacios [facility] LDRP REPEAT / LABOR [id number] 09/09/2014 11:49:00 09/09/2014 12:25:00 DIS Outpatient MARIELA HENRY DORIAN S [facility] WSo LOW ABD PAIN/BACK PAIN [id number] 07/02/2014 09:35:00 07/02/2014 10:57:00 DIS Emergency TOMI MARTINEZ, CAROL Hopkins [facility] ER CRAMPING 15 WEEKS PREG [id number] 01/30/2014 16:08:00 01/30/2014 19:04:00 DIS Emergency PETE MARTINEZ, EMI Shaikh [facility] ER BACK PAIN [id number] 02/06/2013 12:40:00 Document Registration [id number] 09/22/2012 09:29:00 Document Registration [id number] 09/02/2012 10:44:00 Document Registration [id number] 07/15/2012 18:46:00 Document Registration [id number] 10/08/2011 08:03:00 Document Registration [id number] 08/12/2011 19:59:00 Document Registration [id number] 05/21/2011 20:05:00 Document Registration [id number] 08/06/2010 13:03:00 Document Registration [id number] 07/30/2009 20:10:00 Document Registration [id number] 06/25/2009 12:36:00 Document Registration [id number] 01/22/2018 14:40:00 01/22/2018 23:59:59 CLS Outpatient SAMIR BRANDON APRN [facility]
[2018-08-13] MEDS ORDERED: LIDOCAINE 1% INJ 20 ML 20 ML VIAL INJ ONE (11:00)
[2018-08-13] MEDS ORDERED: BUPIVACAINE 0.5% 30 ML (SENSORCAINE) VIAL INJ ONE (11:00)
--- NOTE | 2018-08-13 11:06 | ED EENT ---
History of Present Illness General Chief Complaint: Dental Problems/Pain Stated Complaint: JAW PAIN Nursing Triage Note: PT PRESENTS TO ER WITH COMPLAINT OF NOT BEING ABLE TO OPEN HER MOUTH. STATES SHE HAD A TOOTHACHE YESTERDAY AND CANNOT OPEN HER MOUTH TODAY. Source: patient Exam Limitations: no limitations History of Present Illness Date Seen by Provider: Aug 13, 2018 Time Seen by Provider: 11:01 Initial Comments To ER per private vehicle with reports of right-sided facial and dental pain. This began about 2-3 days ago. Tylenol was initially controlling pain, today the pain is so intense she cannot open her mouth. No swelling. Timing/Duration: abrupt Severity: moderate Location: mouth Associated Symptoms: tooth pain Allergies and Home Medications Allergies Coded Allergies: codeine (Unverified Adverse Reaction, Intermediate, GI UPSET, 10/09/17) hydrocodone (Verified Adverse Reaction, Intermediate, nausea, 10/10/17) Home Medications No Active Prescriptions or Reported Meds Patient Home Medication List Home Medication List Reviewed: Yes Review of Systems Review of Systems Constitutional: see HPI Eyes: No Symptoms Reported Ears: No Symptoms Reported Nose: no symptoms reported Mouth: see HPI, pain Throat: no symptoms reported Respiratory: no symptoms reported Cardiovascular: no symptoms reported Musculoskeletal: no symptoms reported Skin: no symptoms reported Neurological: No Symptoms Reported Hematologic/Lymphatic: No Symptoms Reported Immunological/Allergic: no symptoms reported Past Zwibmgt-Buoflw-Wqdahl Hx Patient Social History Alcohol Use: Denies Use Recreational Drug Use: No Smoking Status: Former Smoker Type Used: Cigarettes Former Smoker, Quit: Jan 23, 2017 Recent Foreign Travel: No Contact w/Someone Who Travel: No Recent Infectious Disease Expo: No Recent Hopitalizations: No Immunizations Up To Date Tetanus Booster (TDap): Less than 5yrs PED Vaccines UTD: Yes Date of Influenza Vaccine: Jul 28, 2017 Seasonal Allergies Seasonal Allergies: No Past Medical History Surgeries: Yes (d&c, hernia repair) Section Respiratory: No Cardiac: No Neurological: No Headaches /Migraines Reproductive Disorders: No Female Reproductive Disorders: Denies [employer]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 Sexually Transmitted Disease: No HIV/AIDS: No Genitourinary: No Gastrointestinal: Yes (UMBILICAL HERNIA) Gastroesophageal Reflux Musculoskeletal: No Endocrine: Yes (Hx Gestational diabetes) HEENT: Yes (GLASSES) Loss of Vision: Bilateral Hearing Impairment: Denies Cancer: No Psychosocial: Yes Anxiety, Bipolar, Depression Integumentary: No Blood Disorders: No Adverse Reaction/Blood Tranf: No (N/A) Family Medical History Diabetes mellitus No Pertinent Family Hx Physical Exam Vital Signs Vital Signs - First Documented 08/13/18 09:17 Temp 97.0 Pulse 79 Resp 18 B/P (MAP) 106/67 (80) Pulse Ox 100 O2 Delivery Room Air Height, Weight, BMI Height: 5'3.00" Weight: 198lbs. 0.4oz. 89.892526az; 39.9 BMI Method:Stated General Appearance: WD/WN, no apparent distress Eyes: bilateral eye normal inspection, bilateral eye PERRL, bilateral eye EOMI Ears: bilateral ear auricle normal, bilateral ear canal normal, bilateral ear TM normal Mouth/Throat: No mandibular swelling, No maxillary swelling; trismus (she is able open her mouth, no buccal swelling or palpable abscess. ) Neck: non-tender, full range of motion; No lymphadenopathy (R), No lymphadenopathy (L) Respiratory: no respiratory distress, no accessory muscle use Neurologic/Psychiatric: alert, normal mood/affect, oriented x 3 Skin: normal color, warm/dry Progress/Results/Core Measures Results/Orders My Orders Orders - BONNIE PANDEY APRN Lidocaine 1% Inj 20 Ml (Xylocaine 1% Inj (08/13/18 11:00) Bupivacaine 0.5% Injection (Sensorcaine (08/13/18 11:00) Vital Signs/I&O 08/13/18 09:17 Temp 97.0 Pulse 79 Resp 18 B/P (MAP) 106/67 (80) Pulse Ox 100 O2 Delivery Room Air Blood Pressure Mean: 80 Departure Impression Primary Impression: Dental caries Additional Impression: Pain, dental Disposition: 01 HOME, SELF-CARE Condition: Stable Departure-Patient Inst. Decision time for Depature: 11:04 Referrals: [facility]/ANTHONY (PCP) Primary Care Physician DORIAN SIERRA DO (Family) Primary Care Physician Patient Instructions: Dental Pain (DC) Add. Discharge Instructions: 1. REturn to ER for any concerns. Call [facility] today to make an appointment to be seen ANDREW. 2. All discharge instructions reviewed with patient and/or family. Voiced understanding. Scripts Tramadol HCl (Ultram) 50 Mg Tablet 50 MG PO Q6H PRN for PAIN-MODERATE TO SEVERE, #10 TAB Prov: BONNIE PANDEY APRN 08/13/18 Naproxen (Naprosyn) 500 Mg Tablet 500 MG PO BID PRN for PAIN-MODERATE TO SEVERE, #30 TAB Prov: BONNIE PANDEY APRN 08/13/18 Amoxicillin (Amoxicillin) 500 Mg Capsule 500 MG PO TID, #21 CAP Prov: BONNIE PANDEY APRN 08/13/18 Work/School Note: Work Release Form Date Seen in the Emergency Department: Aug 13, 2018 Return to Work: Aug 14, 2018 Images Mouth/Nose 1 - Caries, Fracture Tooth, Tenderness BONNIE PANDEY APRN Aug 13, 2018 11:06
[2018-08-13] MEDS ORDERED: AMOX500C2 PO (11:07)
[2018-08-13] MEDS ORDERED: TRAM-42 PO (11:07)
[2018-08-13] MEDS ORDERED: NAPR-1071 PO (11:07)
[2018-08-13 11:34] VITALS: BP 106/67
== END 2018-08-13 11:34 | disposition home or self-care (01) ==
LOC: EDUNIT# 09:04 → ER 09:05
DX: K02.9 Dental caries, unspecified (principal); G43.909 Migraine, unspecified, not intractable, without status migrainosus; K21.9 Gastro-esophageal reflux disease without esophagitis; F41.9 Anxiety disorder, unspecified; F31.9 Bipolar disorder, unspecified; Z87.19 Personal history of other diseases of the digestive system; Z98.51 Tubal ligation status; Z88.5 Allergy status to narcotic agent; Z87.891 Personal history of nicotine dependence; Z98.890 Other specified postprocedural states
CPT/HCPCS: 99284